=== PATIENT | female | born 1955 | race Caucasian/White ===

== ENCOUNTER 2018-04-14 19:29 | Outpatient (CLI) | payer MEDICAID | END 2018-04-14 19:30 | disposition critical access hospital (66) | LOC: EMS 19:29 | PROVIDERS: ATTEND Surgery | DX: R06.02 Shortness of breath (principal); R07.89 Other chest pain | CPT/HCPCS: A0425; A0427 ==

== ENCOUNTER 2018-04-14 19:52 | Emergency (ER) | payer MEDICAID ==
[2018-04-14] MEDS ORDERED: ASPIRIN CHEW 81 MG TABLET PO STA (20:13)
[2018-04-14] MEDS ORDERED: ALBUTEROL NEB 2.5 MG/3 ML INH STA ×2 (20:13→21:37)
--- NOTE | 2018-04-14 20:17 | ED Physician Documentation ---
History of Present Illness - Stated complaint Stated Complaint: CP/SOA - Chief complaint Chief Complaint: Resp - History obtained from History obtained from: Patient, Family - History of Present Illness Timing: Prior to arrival, Today Severity Comments: moderate Radiates to: none Worsened by: walking - Additonal information Additional information: 62-year-old female was brought to the emergency department by EMS for evaluation of shortness of breath which developed this evening around 6 PM. The patient reports feeling sick for the past several days with nasal congestion , cough, body aches and general fatigue. The patient smokes 1-1/2 packs of cigarettes a day and does not follow with a physician regularly. The patient reports increasing shortness of breath and tightness, the patient's symptoms did not improve and she called EMS. The patient was given Solu-Medrol and a DuoNeb in route and now her symptoms are somewhat improved. The patient denies any other symptoms. Symptoms are described as moderate. The patient denies any history of COPD but also does not follow with any physician. The patient does report intermittent episodes similar to tonight but typically her symptoms spontaneously resolve at home. Review of Systems Constitutional: reports: Fever, Chills, Myalgias, Fatigue Ears: denies: Ear pain Nose: reports: Rhinorrhea / runny nose, Congestion Cardiac: reports: Other (The patient reports chest tightness with the shortness of breath). 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: Hysterectomy, Oophrectomy - Present Medications Home Medications: Ambulatory Orders Medication Instructions Recorded Confirmed Albuterol Sulf [Ventolin Hfa 1 - 2 puffs INH Q4HR PRN #1 inhaler 04/15/18 Inhaler] Azithromycin [Zithromax] 250 mg PO DAILY #4 tablet 04/15/18 predniSONE [Prednisone] 60 mg PO DAILY #10 tablet 04/15/18 - Allergies Allergies/Adverse Reactions: Allergies Allergy/AdvReac Type Severity Reaction Status Date / Time lisinopril Allergy weakness Verified 04/14/18 19:59 nickel [Nickel] AdvReac Rash Verified 04/14/18 19:59 - Social History Does the pt smoke?: Yes Smoking Status: Current every day smoker Does the pt drink ETOH?: Yes Does the pt have substance abuse?: No PD ED PE NORMAL - General General: Alert and oriented X 3 - HEENT HEENT: Atraumatic, PERRL, EOMI, Ears normal - Neck Neck: Supple, no meningeal sign - Cardiac Cardiac: RRR, Strong equal pulses - Respiratory Respiratory: Other (The patient has an increased respiratory rate, the patient has poor aeration and Scattered wheezing) - Abdomen Abdomen: Soft, Non tender - Derm Derm: Normal color - Extremities Extremities: No deformity, No edema - Neuro Neuro: Alert and oriented X 3, Normal speech - Psych Psych: Normal affect Results - Vitals Vitals: Vital Signs - 24 hr 04/14/18 04/14/18 04/14/18 19:57 20:29 20:58 Temperature 36.1 C L Heart Rate 97 107 H Respiratory 24 20 20 Rate Blood Pressure 142/68 H 124/73 O2 Saturation 100 94 96 04/14/18 04/14/18 22:02 22:53 Temperature Heart Rate 93 116 H Respiratory 13 20 Rate Blood Pressure 102/70 O2 Saturation 97 Oxygen O2 Source Room air - EKG (time done) No standard instances Rate: Rate (enter#) (90 BPM) Rhythm: NSR Intervals: Normal TX, RBBB Ischemia: Non specific changes Other comments: Other comments (No acute ischemic changes When compared to a recent EKG) Compare to prior EKG: Unchanged from prior EKG - Labs Labs: Laboratory Tests 04/14/18 04/14/18 04/14/18 20:16 20:16 20:16 WBC 5.2 RBC 4.06 L Hgb 15.0 Hct 42.4 MCV 104.4 H MCH 36.9 H MCHC 35.4 RDW 14.7 Plt Count 269 MPV 6.5 L Neut # (Auto) 1.6 Lymph # (Auto) 3.1 Davidson # (Auto) 0.3 Eos # (Auto) 0.1 Baso # (Auto) 0.0 Absolute Nucleated RBC 0.00 Band Neuts % (Manual) Not Reportable Abnorm Lymph % (Manual) Not Reportable Nucleated RBC % 0.1 Neutrophils # (Manual) Not Reportable Lymphocytes # (Manual) Not Reportable Monocytes # (Manual) Not Reportable Eosinophils # (Manual) Not Reportable Basophils # (Manual) Not Reportable Differential Comment MANUAL=AUTO DIFF Platelet Estimate NORMAL (130-450,000) Platelet Morphology NORMAL APPEARANCE RBC Morph Micro Appear NORMAL APPEARANCE D-Dimer Sodium Potassium Chloride Carbon Dioxide Anion Gap BUN Creatinine Estimated GFR (MDRD) Glucose Calcium Magnesium Total Bilirubin AST ALT Alkaline Phosphatase Troponin I < 0.04 B-Natriuretic Peptide 16 Total Protein Albumin Globulin Albumin/Globulin Ratio Lipase 04/14/18 04/14/18 04/14/18 20:16 20:16 22:56 WBC RBC Hgb Hct MCV MCH MCHC RDW Plt Count MPV Neut # (Auto) Lymph # (Auto) Davidson # (Auto) Eos # (Auto) Baso # (Auto) Absolute Nucleated RBC Band Neuts % (Manual) Abnorm Lymph % (Manual) Nucleated RBC % Neutrophils # (Manual) Lymphocytes # (Manual) Monocytes # (Manual) Eosinophils # (Manual) Basophils # (Manual) Differential Comment Platelet Estimate Platelet Morphology RBC Morph Micro Appear D-Dimer < 200.0 L Sodium 131 L Potassium 3.2 L Chloride 97 L Carbon Dioxide 19 L Anion Gap 15.0 H BUN < 5 L Creatinine 0.5 Estimated GFR (MDRD) 125 Glucose 108 H Calcium 8.8 Magnesium 2.1 Total Bilirubin 0.5 AST 44 H ALT 29 Alkaline Phosphatase 91 Troponin I < 0.04 B-Natriuretic Peptide Total Protein 7.4 Albumin 3.8 Globulin 3.6 Albumin/Globulin Ratio 1.1 Lipase 33 - Rads (name of study) Chest x-ray Radiology: Final report received PD MEDICAL DECISION MAKING - ED course ED course: The patient was treated in the emergency department with albuterol and the patient received steroids in route with EMS. The patient has had much improvement has much better aeration and is not hypoxic. The patient's symptoms today seem to be secondary to an acuteCOPD exacerbation secondary to a long history of smoking. Currently, the patient appears appropriate for discharge home in ongoing outpatient management. I discussed with the patient and her family the findings and plan and they understand and agree. I advised close follow-up with primary care. I discussed warning signs and recommended returning to the emergency department immediately for worsening or any concerns. - Sepsis Event Vital Signs: Vital Signs - 24 hr 04/14/18 04/14/18 04/14/18 19:57 20:29 20:58 Temperature 36.1 C L Heart Rate 97 107 H Respiratory 24 20 20 Rate Blood Pressure 142/68 H 124/73 O2 Saturation 100 94 96 04/14/18 04/14/18 22:02 22:53 Temperature Heart Rate 93 116 H Respiratory 13 20 Rate Blood Pressure 102/70 O2 Saturation 97 Oxygen O2 Source Room air Departure - Departure Disposition: Home, Self Care Clinical Impression: COPD with exacerbation Condition: Good Instructions: COPD Dc, Emphysema Dc, ALBUTEROL Oral Inhaler Follow-Up: [facility] [Provider Group] [facility] [Provider Group] - Within 3 Days Prescriptions: Albuterol Sulf [Ventolin Hfa Inhaler] 1 - 2 puffs INH Q4HR PRN #1 inhaler PRN Reason: Shortness Of Air/Wheezing Azithromycin [Zithromax] 250 mg PO DAILY #4 tablet predniSONE [Prednisone] 60 mg PO DAILY #10 tablet Comments: Please follow-up with primary care for further workup and management of your symptoms. Please call to schedule an appointment. Please return to the emergency department immediately for worsening symptoms or any concerns
[2018-04-14 20:20] LABS: BASOPHILS % (AUTO) 0.6 %; EOSINOPHILS # (AUTO) 0.1 10^3/uL (0.0-0.7); EOSINOPHILS % (AUTO) 1.7 %; LYMPHOCYTES # (AUTO) 3.1 10^3/uL (1.5-3.5); LYMPHOCYTES % (AUTO) 60.5 %; MEAN CORPUSCULAR HEMOGLOBIN 36.9 pg (27.0-31.0); MEAN CORPUSCULAR HGB CONC 35.4 g/dL (32.0-36.0); MEAN CORPUSCULAR VOLUME 104.4 fL (81.0-99.0); MEAN PLATELET VOLUME 6.5 fL (7.9-10.8); MONOCYTES # (AUTO) 0.3 10^3/uL (0.0-1.0); MONOCYTES % (AUTO) 6.6 %; NEUTROPHILS # (AUTO) 1.6 10^3/uL (1.5-6.6); NEUTROPHILS % (AUTO) 30.6 %; PLT - PLATELET COUNT 269 10^3/uL (130-450); RED BLOOD COUNT 4.06 10^6/uL (4.20-5.40); RED CELL DISTRIBUTION WIDTH 14.7 % (12.0-15.0); WHITE BLOOD COUNT 5.2 x10^3/uL (4.8-10.8)
[2018-04-14 20:48] LABS: ALBUMIN 3.8 g/dL (3.2-5.5); ALBUMIN/GLOBULIN RATIO 1.1 (1.0-2.2); ALKALINE PHOSPHATASE 91 IU/L (42-121); ALT ALANINE AMINOTRANSFERASE 29 IU/L (10-60); AST ASPARTATE AMINOTRANSFERASE 44 IU/L (10-42); BILIRUBIN,TOTAL 0.5 mg/dL (0.2-1.0); BUN - BLOOD UREA NITROGEN < 5 mg/dL (6-20); CALCIUM 8.8 mg/dL (8.5-10.3); CARBON DIOXIDE - CO2 19 mmol/L (21-32); CHLORIDE 97 mmol/L (101-111); CREATININE 0.5 mg/dL (0.4-1.0); GFR - MDRD 125 (>89); GLUCOSE 108 mg/dL (70-100); LIPASE 33 U/L (22-51); MAGNESIUM 2.1 mg/dL (1.7-2.8); SODIUM 131 mmol/L (135-145); TOTAL PROTEIN 7.4 g/dL (6.7-8.2)
--- NOTE | 2018-04-14 20:48 | XRAY Report ---
Procedure Date: 04/14/2018 Accession Number: [id number] / [id number] Procedure: XR - Chest 2 View X-Ray CPT Code: 78362 FULL RESULT: EXAM: CHEST RADIOGRAPHY EXAM DATE: 04/14/2018 08:26 PM. CLINICAL HISTORY: Chest pain COMPARISON: CHEST 2 VIEW PA/LAT 12/08/2013. TECHNIQUE: 2 views. FINDINGS: Lungs/Pleura: No focal opacities evident. No pleural effusion. No pneumothorax. Normal volumes. Mediastinum: Heart and mediastinal contours are unremarkable. Other: None. IMPRESSION: Normal 2-view chest radiography. RADIA
[2018-04-14] MEDS ORDERED: POTASSIUM CHLORIDE 20 MEQ TABLET PO STA (20:52)
[2018-04-14 20:56] LABS: PLATELET ESTIMATE, MANUAL NORMAL (130-450,000) (NORMAL); PLATELET MORPHOLOGY NORMAL APPEARANCE (NORMAL); RBC MORPHOLOGY (MULTIPLE) NORMAL APPEARANCE (NORMAL)
[2018-04-14 20:57] LABS: DIFFERENTIAL COMMENT MANUAL=AUTO DIFF
[2018-04-14] MEDS ORDERED: AZITHROMYCIN 250 MG TABLET PO STA (21:37)
[2018-04-14] MEDS ORDERED: IPRATROPIUM 0.2 MG/ML NEB INH STA (21:39)
[2018-04-14] MEDS ORDERED: ALBUTEROL NEB 2.5 MG/3 ML INH ONE (22:04)
[2018-04-15 00:23] VITALS: BP 124/75
== END 2018-04-15 00:23 | disposition home or self-care (01) ==
LOC: EDUNIT# → ED 19:52
DX: J44.1 Chronic obstructive pulmonary disease with (acute) exacerbation (principal); I45.10 Unspecified right bundle-branch block; F17.200 Nicotine dependence, unspecified, uncomplicated
CPT/HCPCS: 36415; 71046; 80053; 83690; 83735; 83880; 84484; 85025; 85379; 93005; 94640; 94664; 99284; A9270

== ENCOUNTER 2018-04-24 07:57 | Outpatient (CLI) | payer MEDICAID ==
[2018-04-24 11:59] LABS: BASOPHILS % (AUTO) 0.3 %; EOSINOPHILS % (AUTO) 0.8 %; HGB - HEMOGLOBIN 15.1 g/dL (12.0-16.0); LYMPHOCYTES # (AUTO) 2.8 10^3/uL (1.5-3.5); LYMPHOCYTES % (AUTO) 43.2 %; MEAN CORPUSCULAR HEMOGLOBIN 36.7 pg (27.0-31.0); MEAN CORPUSCULAR HGB CONC 34.6 g/dL (32.0-36.0); MEAN CORPUSCULAR VOLUME 106.1 fL (81.0-99.0); MEAN PLATELET VOLUME 7.9 fL (7.9-10.8); MONOCYTES # (AUTO) 0.4 10^3/uL (0.0-1.0); MONOCYTES % (AUTO) 5.5 %; NEUTROPHILS # (AUTO) 3.3 10^3/uL (1.5-6.6); NEUTROPHILS % (AUTO) 50.2 %; PLT - PLATELET COUNT 283 10^3/uL (130-450); RED BLOOD COUNT 4.11 10^6/uL (4.20-5.40); RED CELL DISTRIBUTION WIDTH 14.4 % (12.0-15.0); WHITE BLOOD COUNT 6.5 x10^3/uL (4.8-10.8)
[2018-04-24 12:47] LABS: ALBUMIN 3.9 g/dL (3.2-5.5); ALBUMIN/GLOBULIN RATIO 1.1 (1.0-2.2); ALKALINE PHOSPHATASE 73 IU/L (42-121); ALT ALANINE AMINOTRANSFERASE 29 IU/L (10-60); AST ASPARTATE AMINOTRANSFERASE 34 IU/L (10-42); BILIRUBIN,TOTAL 0.8 mg/dL (0.2-1.0); BUN - BLOOD UREA NITROGEN 8 mg/dL (6-20); CALCIUM 9.7 mg/dL (8.5-10.3); CARBON DIOXIDE - CO2 27 mmol/L (21-32); CHLORIDE 99 mmol/L (101-111); CHOL/HDL RATIO 2.4 (<4.4); CHOLESTEROL 316 mg/dL; CREATININE 0.7 mg/dL (0.4-1.0); GFR - MDRD 85 (>89); GLUCOSE 96 mg/dL (70-100); HDL CHOLESTEROL 134 mg/dL; LDL CHOLESTEROL,CALCULATED 168 mg/dL; LDL/HDL RATIO 1.3 (<4.4); SODIUM 136 mmol/L (135-145); TOTAL PROTEIN 7.3 g/dL (6.7-8.2); VLDL CHOLESTEROL 14 mg/dL
== END 2018-04-24 07:58 ==
LOC: LAB.N 07:57
PROVIDERS: ATTEND Physician Assistant Medical
DX: Z00.00 Encounter for general adult medical examination without abnormal findings (principal); J43.9 Emphysema, unspecified; J44.1 Chronic obstructive pulmonary disease with (acute) exacerbation; Z86.19 Personal history of other infectious and parasitic diseases; Z90.89 Acquired absence of other organs; Z90.710 Acquired absence of both cervix and uterus; I50.1 Left ventricular failure, unspecified; F10.10 Alcohol abuse, uncomplicated; F17.200 Nicotine dependence, unspecified, uncomplicated
CPT/HCPCS: 36415; 80053; 80061; 83721; 84443; 85025

== ENCOUNTER 2018-04-30 08:33 | Outpatient (CLI) | payer MEDICAID ==
[2018-04-30 13:10] LABS: FOLATE 12.47 ng/mL (5.90 - >24.8)
== END 2018-04-30 08:34 | disposition home or self-care (01) ==
LOC: LAB.N 08:33
PROVIDERS: ATTEND Physician Assistant Medical
DX: D53.9 Nutritional anemia, unspecified (principal)
CPT/HCPCS: 36415; 82607; 82746

== ENCOUNTER 2018-06-26 08:00 | Outpatient (CLI) | payer MEDICAID | END 2018-06-26 08:01 | disposition home or self-care (01) | LOC: LAB.N 08:00 | PROVIDERS: ATTEND Physician Assistant Medical | DX: E78.5 Hyperlipidemia, unspecified (principal) | CPT/HCPCS: 36415; 80061; 83721 ==

== ENCOUNTER 2018-08-23 08:31 | Outpatient (CLI) | payer MEDICAID ==
[2018-08-23 13:58] LABS: CHOL/HDL RATIO 2.3 (<4.4); CHOLESTEROL 231 mg/dL; HDL CHOLESTEROL 101 mg/dL; LDL CHOLESTEROL,CALCULATED 119 mg/dL; LDL/HDL RATIO 1.2 (<4.4); VLDL CHOLESTEROL 11 mg/dL
== END 2018-08-23 23:59 | disposition home or self-care (01) ==
LOC: LAB.N 08:31
PROVIDERS: ATTEND Physician Assistant Medical
DX: E78.5 Hyperlipidemia, unspecified (principal)
CPT/HCPCS: 36415; 80061; 83721

== ENCOUNTER 2019-01-08 08:00 | Outpatient (CLI) | payer MEDICAID ==
[2019-01-08 13:07] LABS: CHOL/HDL RATIO 2.2 (<4.4); CHOLESTEROL 199 mg/dL; HDL CHOLESTEROL 91 mg/dL; LDL CHOLESTEROL,CALCULATED 98 mg/dL; LDL/HDL RATIO 1.1 (<4.4); VLDL CHOLESTEROL 10 mg/dL
== END 2019-01-08 23:59 | disposition home or self-care (01) ==
LOC: LAB.N 08:00
PROVIDERS: ATTEND Physician Assistant Medical
DX: E78.5 Hyperlipidemia, unspecified (principal)
CPT/HCPCS: 36415; 80061; 83721

== ENCOUNTER 2019-10-06 10:25 | Outpatient (CLI) | payer MEDICAID ==
--- NOTE | 2019-10-07 00:19 | XRAY Report ---
Reason: SOB Procedure Date: 10/06/2019 Accession Number: [id number] / [id number] Procedure: XRN - Chest 2 View X-Ray CPT Code: 23222 Final Report FULL RESULT: EXAM: CHEST RADIOGRAPHY EXAM DATE: 10/06/2019 10:45 AM. CLINICAL HISTORY: Shortness of breath. COMPARISON: CHEST 2 VIEW 04/14/2018 8:07 PM. TECHNIQUE: 2 views. FINDINGS: Lungs/Pleura: No focal opacities evident. No pleural effusion. No pneumothorax. Normal volumes. Mediastinum: Heart and mediastinal contours are unremarkable. Other: None. IMPRESSION: No acute cardiopulmonary disease seen. RADIA
== END 2019-10-06 10:26 | disposition home or self-care (01) ==
LOC: DI.N 10:25
PROVIDERS: ATTEND Physician Assistant Medical
DX: R06.02 Shortness of breath (principal)
CPT/HCPCS: 71046

== ENCOUNTER 2020-09-13 10:29 | Outpatient (CLI) | payer MEDICAID ==
--- NOTE | 2020-09-13 10:49 | XRAY Report ---
PROCEDURE: Chest 2 View X-Ray INDICATIONS: COPD, SOB TECHNIQUE: 2 view(s) of the chest. COMPARISON: None. FINDINGS: Surgical changes and devices: None. Lungs and pleura: No pleural effusions or pneumothorax. Lungs are clear. Hyperinflation is seen. Mediastinum: Mediastinal contours are normal. Heart size is normal. Bones and chest wall: No suspicious bony abnormalities. Soft tissues appear unremarkable. IMPRESSION: No acute cardiopulmonary pathology. Hyperinflation. Reviewed by: Red Arias MD on 09/13/2020 10:48 AM [facility] Approved by: Red Arias MD on 09/13/2020 10:48 AM [facility] Station ID: [id number]
== END 2020-09-13 23:59 ==
LOC: DI.WCP 10:29
PROVIDERS: ATTEND Nurse Practitioner
DX: J44.9 Chronic obstructive pulmonary disease, unspecified (principal); R06.02 Shortness of breath; I10 Essential (primary) hypertension

== ENCOUNTER 2020-09-17 08:50 | Outpatient (CLI) | payer MEDICAID ==
[2020-09-17 12:25] LABS: BASOPHILS % (AUTO) 0.6 %; EOSINOPHILS # (AUTO) 0.2 10^3/uL (0.0-0.7); HGB - HEMOGLOBIN 12.3 g/dL (12.0-16.0); LYMPHOCYTES # (AUTO) 1.3 10^3/uL (1.5-3.5); LYMPHOCYTES % (AUTO) 27.6 %; MEAN CORPUSCULAR HGB CONC 32.8 g/dL (32.0-36.0); MEAN CORPUSCULAR VOLUME 106.8 fL (81.0-99.0); MEAN PLATELET VOLUME 9.4 fL (7.9-10.8); MONOCYTES # (AUTO) 0.4 10^3/uL (0.0-1.0); MONOCYTES % (AUTO) 9.1 %; NEUTROPHILS # (AUTO) 2.6 10^3/uL (1.5-6.6); NEUTROPHILS % (AUTO) 57.1 %; PLT - PLATELET COUNT 297 10^3/uL (130-450); RED BLOOD COUNT 3.51 10^6/uL (4.20-5.40); RED CELL DISTRIBUTION WIDTH 13.2 % (12.0-15.0); WHITE BLOOD COUNT 4.6 x10^3/uL (4.8-10.8)
[2020-09-17 12:59] LABS: ALBUMIN 3.8 g/dL (3.2-5.5); ALBUMIN/GLOBULIN RATIO 1.1 (1.0-2.2); ALKALINE PHOSPHATASE 87 IU/L (42-121); ALT ALANINE AMINOTRANSFERASE 25 IU/L (10-60); AST ASPARTATE AMINOTRANSFERASE 29 IU/L (10-42); BILIRUBIN,TOTAL 0.6 mg/dL (0.2-1.0); BUN - BLOOD UREA NITROGEN 8 mg/dL (6-20); CARBON DIOXIDE - CO2 25 mmol/L (21-32); CHLORIDE 105 mmol/L (101-111); CHOL/HDL RATIO 2.8 (<4.4); CHOLESTEROL 240 mg/dL; CREATININE 0.7 mg/dL (0.4-1.0); GLUCOSE 96 mg/dL (70-100); HDL CHOLESTEROL 86 mg/dL; LDL CHOLESTEROL,CALCULATED 138 mg/dL; LDL/HDL RATIO 1.6 (<4.4); SODIUM 140 mmol/L (135-145); TOTAL PROTEIN 7.4 g/dL (6.7-8.2); VLDL CHOLESTEROL 16 mg/dL
--- OUTSIDE RECORDS SUMMARY | 2020-09-22 01:55 | EXTERNAL MEDICAL SUMMARY RPT | Continuity of Care Document ---
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 2013-02-27 14:[address] [facility] 2013-04-24 15:[address] [facility] 2013-05-01 13:18 LOC OSTEOARTH NOS-PELVIS [facility] 2013-05-22 13:06 JOINT PAIN-UNSPEC [facility] 2013-05-23 13:52 LOC OSTEOARTH NOS-L/LEG [facility] 2013-07-03 14:[address] [facility] 2013-10-28 09:05 TOBACCO USE DISORDER [facility] ical [place] 2013-10-28 09:[address] [facility] 2013-10-28 09:05 INTERMED [facility]ON[facility] SYND [facility] [place] 2013-10-28 09:05 OSTEOARTHROS NOS-UNSPEC [facility] 2013-10-28 09:05 DIZZINESS AND GIDDINESS [facility] 2013-10-28 09:05 GENERALIZED HYPERHIDROSIS [facility] 2013-10-28 09:05 SHORTNESS OF BREATH [facility] 2013-10-28 09:05 FAMILY HISTORY OF OTHER [facility] CARDIOVASCULAR DISEASES 2013-12-08 07:37 SHORTNESS OF BREATH [facility] 2013-12-08 07:37 CHEST PAIN NOS [facility] 2013-12-08 07:37 HX-DRUG ALLERGY NEC [facility] 2013-12-08 07:37 ALLERGY, OTH THAN TO MEDICINAL [facility] AGENTS NEC 2013-12-10 10:10 ANGINA PECTORIS NEC/NOS [facility] 2014-01-12 13:52 ANGINA PECTORIS NEC/NOS [facility] 2014-01-12 13:52 ARTHROPATHY NOS-UNSPEC [facility] 2014-02-09 10:22 HYPERTENSION NOS [facility] 2014-02-09 10:22 OTH MED,LT,CURRENT USE [facility] edical [place] 2014-03-10 10:17 DEFICIENCY ANEMIA NOS [facility] 2014-03-25 08:28 HYPERTENSION NOS [facility] [place] 2014-03-25 08:28 ANGINA PECTORIS NEC/NOS [facility] 2014-03-25 08:28 JOINT PAIN-PELVIS [facility] [place] 2014-03-25 08:28 JOINT PAIN-ANKLE [facility] 2014-03-25 08:28 PAIN IN LIMB [facility] 2018-04-14 19:52 NICOTINE DEPENDENCE, [facility] UNSPECIFIED, UNCOMPLICATED 2018-04-14 19:52 UNSPECIFIED RIGHT BUNDLE-BRANCH [facility] BLOCK 2018-04-14 19:52 CHRONIC OBSTRUCTIVE PULMONARY [facility] DISEASE W (ACUTE) EXACERBATION 2018-04-14 19:52 CHEST PAIN, UNSPECIFIED [facility] 2018-04-24 07:57 ALCOHOL ABUSE, UNCOMPLICATED [facility] 2018-04-24 07:57 NICOTINE DEPENDENCE, [facility] UNSPECIFIED, UNCOMPLICATED 2018-04-24 07:57 LEFT VENTRICULAR FAILURE, [facility] UNSPECIFIED 2018-04-24 07:57 EMPHYSEMA, UNSPECIFIED [facility] 2018-04-24 07:57 CHRONIC OBSTRUCTIVE PULMONARY [facility] DISEASE W (ACUTE) EXACERBATION 2018-04-24 07:57 ENCNTR FOR GENERAL ADULT [facility] MEDICAL EXAM W/O ABNORMAL FINDINGS 2018-04-24 07:57 PERSONAL HISTORY OF OTHER [facility] INFECTIOUS AND PARASITIC DISEASES 2018-04-24 07:57 ACQUIRED ABSENCE OF BOTH CERVIX [facility] AND UTERUS 2018-04-24 07:57 ACQUIRED ABSENCE OF OTHER [facility] 2018-04-30 08:33 NUTRITIONAL ANEMIA, UNSPECIFIED [facility] 2018-06-26 08:00 HYPERLIPIDEMIA, UNSPECIFIED [facility] 2018-08-23 08:31 HYPERLIPIDEMIA, UNSPECIFIED [facility] 2019-01-08 08:00 HYPERLIPIDEMIA, UNSPECIFIED [facility] 2019-10-06 10:25 SHORTNESS OF BREATH [facility] 2020-09-13 00:00:00 TSH WITH REFLEX TO FT4 [facility] 2020-09-13 00:00:00 [facility] 2020-09-13 00:00:00 Ganglion, unspecified [facility] Care [facility] 2020-09-13 00:00:[address] [facility] 2020-09-13 00:00:00 Screening for malignant [facility] neoplasms of colon [facility] 2020-09-13 00:00:00 X-RAY EXAM CHEST 2 VIEWS [facility] Primary [facility] 2020-09-13 00:00:00 MM SCR DIGITAL [facility]AMMO BILAT [facility] 2020-09-13 00:00:00 COMPREHENSIVE METABOLIC PANEL [facility] Care [facility] 2020-09-13 00:00:00 LIPIDS SCREEN [facility] 2020-09-13 00:00:00 CBC W/Diff/Plt [facility] 2020-09-13 00:00:00 ECHO TRANSTHORACIC COMPLETE [facility] 2020-09-13 00:00:00 Unspecified disorder of [facility] circulatory system [facility] 2020-09-13 00:00:00 Ganglion, unspecified site [facility] 2020-09-13 00:00:00 Encounter for screening for [facility] malignant neoplasm of colon [facility] 2020-09-13 00:00:00 [facility] 2020-09-13 00:00:00 [facility] 2020-09-13 00:00:00 Health-related behavior [facility] 2020-09-13 00:00:00 [facility] 2020-09-13 00:00:00 Screening mammography [facility] 2020-09-13 00:00:00 [facility] 2020-09-13 00:00:00 [facility] neoplasm [facility] colon [facility] 2020-09-13 00:00:00 Details of drug misuse behavior [facility] 2020-09-13 00:00:00 [facility] 2020-09-13 00:00:00 Disorder of cardiovascular [facility] 2020-09-13 00:00:00 [facility] 2020-09-13 00:00:00 Tobacco smoking status NHIS [facility] 2020-09-13 00:00:00 [facility] 2020-09-13 10:29 ESSENTIAL (PRIMARY) [facility] HYPERTENSION 2020-09-13 10:29 CHRONIC OBSTRUCTIVE PULMONARY [facility] DISEASE, UNSPECIFIED 2020-09-13 10:29 SHORTNESS OF BREATH [facility] 2020-09-17 00:00 HYPERLIPIDEMIA, UNSPECIFIED [facility] 2020-09-17 08:50 HYPERLIPIDEMIA, UNSPECIFIED [facility] Allergies date description facility [facility] LISINOPRIL [facility] SULFA (SULFONAMIDE ANTIBIOTICS) [facility] lisinopril [facility] LATEX [facility] OXYCODONE-ACETAMINOPHEN [facility] lisinopril [facility] nickel [facility] lisinopril [facility] nickel [facility] Medications date description facility 2020-09-13 00:00:00 null [facility] 2020-09-13 00:00:00 null [facility] 2020-09-13 00:00:00 BUDESONIDE-FORMOTEROL FUMARATE [facility] 2020-09-13 00:00:00 BUDESONIDE-FORMOTEROL FUMARATE [facility] Procedures date description facility 2020-09-13 00:00:00 TSH WITH REFLEX TO FT4 [facility] date description facility 2020-09-13 00:00:00 X-RAY EXAM CHEST 2 VIEWS [facility] date description facility 2020-09-13 00:00:00 COMPREHENSIVE METABOLIC PANEL [facility] date description facility 2020-09-13 00:00:00 LIPIDS SCREEN [facility] date description facility 2020-09-13 00:00:00 CBC W/Diff/Plt [facility] date description facility 2020-09-13 00:00:00 [facility] Results Social History date description facility 2020-09-13 00:00:00 Former smoker [facility] Social History date description facility 2020-09-13 00:00:00 Former smoker [facility] date description facility [id number]
== END 2020-09-17 23:59 | disposition home or self-care (01) ==
LOC: LAB.WCP 08:50
PROVIDERS: ATTEND Nurse Practitioner
DX: I10 Essential (primary) hypertension (principal); E78.5 Hyperlipidemia, unspecified; J44.9 Chronic obstructive pulmonary disease, unspecified; R06.02 Shortness of breath; M19.90 Unspecified osteoarthritis, unspecified site; D53.9 Nutritional anemia, unspecified; I25.10 Atherosclerotic heart disease of native coronary artery without angina pectoris
CPT/HCPCS: 36415; 80050; 80061; 83721

== ENCOUNTER 2020-10-28 18:48 | Outpatient (CLI) | payer MEDICAID ==
--- NOTE | 2020-10-28 15:29 | XRAY Report ---
PROCEDURE: Wrist 3 View RT INDICATIONS: R WRIST JOINT PX TECHNIQUE: 3 views of the wrist were acquired. COMPARISON: None FINDINGS: Bones: No fractures or dislocations. No suspicious bony lesions. Moderate to severe first CMC dege nerative narrowing. Subchondral sclerosis is present. Radiocarpal degenerative narrowing is also pres ent. Soft tissues: No suspicious soft tissue calcifications. IMPRESSION: Arthritic changes most notable at the first CMC joint as above. Reviewed by: Silvana Ngo MD on 10/28/2020 3:27 PM PST Approved by: Silvana Ngo MD on 10/28/2020 3:27 PM PST Station ID: [id number]
== END 2020-10-28 23:59 | disposition home or self-care (01) ==
LOC: DI.N 18:48
PROVIDERS: ATTEND Orthopaedic Surgery
DX: M25.531 Pain in right wrist (principal); M19.031 Primary osteoarthritis, right wrist

== ENCOUNTER 2020-11-07 08:39 | Outpatient (CLI) | payer MEDICAID | END 2020-11-07 08:40 | disposition home or self-care (01) | LOC: RT 08:39 | PROVIDERS: ATTEND Nurse Practitioner | DX: J44.9 Chronic obstructive pulmonary disease, unspecified (principal); R06.02 Shortness of breath | CPT/HCPCS: 94060 ==

== ENCOUNTER 2020-11-11 10:05 | Outpatient (CLI) | payer MEDICAID | END 2020-11-11 10:06 | disposition home or self-care (01) | LOC: DI 10:05 | PROVIDERS: ATTEND Nurse Practitioner | DX: I25.10 Atherosclerotic heart disease of native coronary artery without angina pectoris (principal); R06.02 Shortness of breath; E78.5 Hyperlipidemia, unspecified | CPT/HCPCS: 93306 ==

== ENCOUNTER 2020-12-27 08:26 | Outpatient (CLI) | payer MEDICAID | END 2020-12-27 08:27 | disposition home or self-care (01) | LOC: LAB 08:26 | PROVIDERS: ATTEND Surgery | DX: Z01.812 Encounter for preprocedural laboratory examination (principal); Z80.0 Family history of malignant neoplasm of digestive organs; Z12.11 Encounter for screening for malignant neoplasm of colon; K21.9 Gastro-esophageal reflux disease without esophagitis; K92.0 Hematemesis; J44.9 Chronic obstructive pulmonary disease, unspecified; I25.10 Atherosclerotic heart disease of native coronary artery without angina pectoris; Z20.822 Contact with and (suspected) exposure to COVID-19 ==

== ENCOUNTER 2020-12-30 12:07 | Day surgery (SDC) | payer MEDICAID ==
[2020-12-30] MEDS ORDERED: LACTATED RINGERS 1,000 ML IV ONE ×2 (12:54→14:12)
--- NOTE | 2020-12-30 13:10 | ANESTHESIA ---
Pre-Anesthesia VS, & Labs - Diagnosis reflux, family history of colon cancer - Procedure EGD, colonoscopy Vital Signs: Temp Pulse Resp BP Pulse Ox 36.4 C L 97 20 148/83 H 96 12/30/20 12:15 12/30/20 12:15 12/30/20 12:15 12/30/20 12:15 12/30/20 12:15 Height: 5 ft Weight (kg): 95.6 kg Body Mass Index: 41.1 BMI Classification: Morbidly Obese - NPO >8 hours - Is Patient ?: Yes Home Medications and Allergies Home Medications: Ambulatory Orders Amlodipine Besylate [Norvasc] 10 mg PO DAILY 12/20/20 Atorvastatin Calcium 40 mg PO DAILY 12/20/20 Budesonide/Formoterol Fumarate [Symbicort 160-4.5 Mcg Inhaler] 2 inh IH BID 12/20/20 Amlodipine Besylate [Norvasc] 10 mg PO DAILY 12/20/20 Atorvastatin Calcium 40 mg PO DAILY 12/20/20 Budesonide/Formoterol Fumarate [Symbicort 160-4.5 Mcg Inhaler] 2 inh IH BID 12/20/20 Allergies/Adverse Reactions: Allergies Allergy/AdvReac Type Severity Reaction Status Date / Time lisinopril Allergy weakness Verified 04/14/18 19:59 nickel [Nickel] AdvReac Rash Verified 04/14/18 19:59 Anes History & Medical History - Anesthetic History Anesthesia Complications: reports: No previous complications - Medical History Cardiovascular: reports: Hypertension, High cholesterol, Angina Pulmonary: reports: COPD, Emphysema, Shortness of breath Gastrointestinal: reports: GERD, Cholelithiasis Urinary: reports: Incontinence, Nocturia Musculoskeletal: reports: Osteoarthritis Endocrine/Autoimmune: reports: None Blood Disorders: reports: None Skin: reports: Eczema, Other Smoking Status: Current every day smoker - Surgical History General: reports: Cholecystectomy Eyes Ears Nose Throat (EENT): reports: Tonsil/Adenoidectomy Gynecologic: reports: Hysterectomy, Oophrectomy Exam General: Alert Dental: Dentures full Upper Neck Mobility: Normal Mallampati classification: I Thyromental Distance: greater than 6 cm Respiratory: Lungs clear Cardiovascular: Regular rate Plan Anesthesia Type: Total IV Consent for Procedure(s) Verified and Reviewed: Yes Code Status: Attempt Resuscitation ASA classification: 3-Severe systemic disease Is this case an emergency?: No
[2020-12-30] MEDS ORDERED: fentaNYL 100 MCG/2 ML VIAL ONE (13:28)
[2020-12-30] MEDS ORDERED: PROPOFOL 200 MG/20 ML VIAL IVP ONE ×2 (13:29→14:03)
[2020-12-30] MEDS ORDERED: KETAMINE 500 MG/10 ML VIAL ONE (13:29)
[2020-12-30] MEDS ORDERED: MIDAZOLAM 2 MG/2 ML VIAL ONE (13:29)
[2020-12-30] MEDS ORDERED: LIDOCAINE-MPF 2% 5 ML VIAL ONE (14:01)
[2020-12-30 15:03] VITALS: BP 124/68
[2020-12-30] MEDS ORDERED: KETOROLAC 30 MG/ML VIAL ONE (15:20)
--- NOTE | 2020-12-30 16:04 | ANESTHESIA POST OP EVALUATION ---
Anesthesia Post Eval - Post Anesthesia Eval Vitals: Last Vital Signs Temp 36.5 C 12/30/20 15:02 Pulse 65 12/30/20 15:02 Resp 19 12/30/20 15:02 BP 124/68 12/30/20 15:02 Pulse Ox 98 12/30/20 15:02 CV Function Including HR & BP: Stable Pain Control: Satisfactory Nausea & Vomiting: Negative Mental Status: Baseline Respiratory Status: Airway Patent Hydration Status: Satisfactory Anesthesia Complications: None
== END 2020-12-30 12:08 | disposition home or self-care (01) ==
LOC: SDS 12:07
PROVIDERS: ATTEND Surgery
PROC: 0DB78ZX Excision of Stomach, Pylorus, Via Natural or Artificial Opening Endoscopic, Diagnostic (ICD-10-PCS; 2020-12-30)
PROC: 0DB58ZX Excision of Esophagus, Via Natural or Artificial Opening Endoscopic, Diagnostic (ICD-10-PCS; 2020-12-30)
PROC: 0DBN8ZZ Excision of Sigmoid Colon, Via Natural or Artificial Opening Endoscopic (ICD-10-PCS; principal; 2020-12-30 13:15)
PROC: 0DB98ZX Excision of Duodenum, Via Natural or Artificial Opening Endoscopic, Diagnostic (ICD-10-PCS; 2020-12-30 13:15)
DX: Z12.11 Encounter for screening for malignant neoplasm of colon (principal); K63.5 Polyp of colon; K21.9 Gastro-esophageal reflux disease without esophagitis; K64.8 Other hemorrhoids; K64.4 Residual hemorrhoidal skin tags; K92.0 Hematemesis; E66.01 Morbid (severe) obesity due to excess calories; Z68.41 Body mass index [BMI] 40.0-44.9, adult; I25.10 Atherosclerotic heart disease of native coronary artery without angina pectoris; I10 Essential (primary) hypertension; Z80.0 Family history of malignant neoplasm of digestive organs; J43.9 Emphysema, unspecified; F17.200 Nicotine dependence, unspecified, uncomplicated
CPT/HCPCS: 43239; 45380; J7120

== ENCOUNTER 2021-08-22 10:45 | Outpatient (CLI) | payer MEDICARE, MEDICAID ==
[2021-08-22 18:14] LABS: BASOPHILS % (AUTO) 0.3 %; EOSINOPHILS # (AUTO) 0.1 10^3/uL (0.0-0.7); EOSINOPHILS % (AUTO) 2.3 %; HCT - HEMATOCRIT 44.7 % (37.0-47.0); HGB - HEMOGLOBIN 14.4 g/dL (12.0-16.0); LYMPHOCYTES # (AUTO) 1.5 10^3/uL (1.5-3.5); LYMPHOCYTES % (AUTO) 23.8 %; MEAN CORPUSCULAR HEMOGLOBIN 33.7 pg (27.0-31.0); MEAN CORPUSCULAR HGB CONC 32.2 g/dL (32.0-36.0); MEAN CORPUSCULAR VOLUME 104.7 fL (81.0-99.0); MEAN PLATELET VOLUME 9.3 fL (7.9-10.8); MONOCYTES # (AUTO) 0.4 10^3/uL (0.0-1.0); MONOCYTES % (AUTO) 6.6 %; NEUTROPHILS % (AUTO) 66.5 %; PLT - PLATELET COUNT 371 10^3/uL (130-450); RED BLOOD COUNT 4.27 10^6/uL (4.20-5.40); RED CELL DISTRIBUTION WIDTH 13.9 % (12.0-15.0); WHITE BLOOD COUNT 6.1 x10^3/uL (4.8-10.8)
[2021-08-22 18:36] LABS: ALBUMIN 3.5 g/dL (3.2-5.5); ALBUMIN/GLOBULIN RATIO 0.9 (1.0-2.2); ALKALINE PHOSPHATASE 131 IU/L (42-121); ALT ALANINE AMINOTRANSFERASE 25 IU/L (10-60); AST ASPARTATE AMINOTRANSFERASE 31 IU/L (10-42); BILIRUBIN,TOTAL 0.7 mg/dL (0.2-1.0); BUN - BLOOD UREA NITROGEN 7 mg/dL (6-20); CALCIUM 9.4 mg/dL (8.5-10.3); CARBON DIOXIDE - CO2 26 mmol/L (21-32); CHLORIDE 103 mmol/L (101-111); CHOL/HDL RATIO 2.6 (<4.4); CHOLESTEROL 169 mg/dL; CREATININE 0.7 mg/dL (0.4-1.0); GFR - MDRD 84 (>89); GLUCOSE 97 mg/dL (70-100); HDL CHOLESTEROL 65 mg/dL; LDL CHOLESTEROL,CALCULATED 88 mg/dL; LDL/HDL RATIO 1.4 (<4.4); POTASSIUM 3.1 mmol/L (3.5-5.0); SODIUM 140 mmol/L (135-145); TOTAL PROTEIN 7.5 g/dL (6.7-8.2); TRIGLYCERIDES 78 mg/dL; VLDL CHOLESTEROL 16 mg/dL
== END 2021-08-22 23:59 | disposition home or self-care (01) ==
LOC: LAB.WCP 10:45
PROVIDERS: ATTEND Family Medicine
DX: I10 Essential (primary) hypertension (principal); L08.9 Local infection of the skin and subcutaneous tissue, unspecified
CPT/HCPCS: 36415; 80053; 80061; 83721; 85025; 87070; 87077; 87181; 87205

== ENCOUNTER 2021-08-29 10:09 | Outpatient (CLI) | payer MEDICARE, MEDICAID ==
[2021-08-29 12:33] LABS: CREATININE 0.7 mg/dL (0.4-1.0); POTASSIUM 4.5 mmol/L (3.5-5.0)
== END 2021-08-29 23:59 | disposition home or self-care (01) ==
LOC: LAB.WCP 10:09
PROVIDERS: ATTEND Family Medicine
DX: E87.5 Hyperkalemia (principal)
CPT/HCPCS: 36415; 80048

== ENCOUNTER 2023-01-01 08:04 | Outpatient (CLI) | payer MEDICARE, MEDICAID ==
[2023-01-01 12:15] LABS: BASOPHILS % (AUTO) 0.5 %; EOSINOPHILS # (AUTO) 0.2 10^3/uL (0.0-0.7); EOSINOPHILS % (AUTO) 2.7 %; HCT - HEMATOCRIT 49.3 % (37.0-47.0); HGB - HEMOGLOBIN 16.4 g/dL (12.0-16.0); LYMPHOCYTES # (AUTO) 1.6 10^3/uL (1.5-3.5); LYMPHOCYTES % (AUTO) 27.9 %; MEAN CORPUSCULAR HEMOGLOBIN 35.4 pg (27.0-31.0); MEAN CORPUSCULAR HGB CONC 33.3 g/dL (32.0-36.0); MEAN CORPUSCULAR VOLUME 106.5 fL (81.0-99.0); MEAN PLATELET VOLUME 9.8 fL (7.9-10.8); MONOCYTES # (AUTO) 0.5 10^3/uL (0.0-1.0); NEUTROPHILS # (AUTO) 3.4 10^3/uL (1.5-6.6); NEUTROPHILS % (AUTO) 60.4 %; PLT - PLATELET COUNT 296 10^3/uL (130-450); RED BLOOD COUNT 4.63 10^6/uL (4.20-5.40); RED CELL DISTRIBUTION WIDTH 13.2 % (12.0-15.0); WHITE BLOOD COUNT 5.7 x10^3/uL (4.8-10.8)
[2023-01-01 12:33] LABS: ALBUMIN/GLOBULIN RATIO 1.2 (1.0-2.2); ALKALINE PHOSPHATASE 87 IU/L (42-121); ALT ALANINE AMINOTRANSFERASE 33 IU/L (10-60); AST ASPARTATE AMINOTRANSFERASE 36 IU/L (10-42); BILIRUBIN,TOTAL 0.8 mg/dL (0.2-1.0); BUN - BLOOD UREA NITROGEN 6 mg/dL (6-20); CALCIUM 9.7 mg/dL (8.5-10.3); CARBON DIOXIDE - CO2 28 mmol/L (21-32); CHLORIDE 103 mmol/L (101-111); CHOL/HDL RATIO 2.1 (<4.4); CHOLESTEROL 202 mg/dL; CREATININE 0.6 mg/dL (0.4-1.0); GFR - MDRD 100 (>89); GLUCOSE 105 mg/dL (70-100); HDL CHOLESTEROL 98 mg/dL; LDL CHOLESTEROL,CALCULATED 91 mg/dL; LDL/HDL RATIO 0.9 (<4.4); POTASSIUM 3.9 mmol/L (3.5-5.0); SODIUM 139 mmol/L (135-145); TOTAL PROTEIN 7.3 g/dL (6.7-8.2); TRIGLYCERIDES 65 mg/dL; VLDL CHOLESTEROL 13 mg/dL
[2023-01-01 12:42] LABS: THYROID STIMULATING HORMONE 3.3 uIU/mL (0.34-5.60)
[2023-01-01 12:48] LABS: ESTIMATED AVERAGE GLUCOSE 111 mg/dL (70-100); HEMOGLOBIN A1c% 5.5 % (4.27-6.07)
== END 2023-01-01 08:05 | disposition home or self-care (01) ==
LOC: LAB.N 08:04
PROVIDERS: ATTEND Internal Medicine
DX: E78.5 Hyperlipidemia, unspecified (principal); D53.9 Nutritional anemia, unspecified; R73.01 Impaired fasting glucose; R68.89 Other general symptoms and signs
CPT/HCPCS: 36415; 80053; 80061; 82607; 83036; 83721; 84443; 85025

== ENCOUNTER 2023-02-07 08:42 | Outpatient (CLI) | payer MEDICARE, MEDICAID ==
--- NOTE | 2023-02-08 08:58 | Mammography Report ---
BILATERAL DIGITAL SCREENING MAMMOGRAM 3D/2D: 02/07/2023 CLINICAL: Baseline exam. Routine screening. No prior exams were available for comparison. Both breasts are almost entirely fatty (category a/<25% glandular tissue). There are benign calcifications in the right breast. No significant masses, calcifications, or other findings are seen in either breast. IMPRESSION: BENIGN There is no mammographic evidence of malignancy. A 1 year screening mammogram is recommended. Based on the Tyrer Cuzick model (a risk assessment model) the patients lifetime risk is 4.2% and her 10 year risk is 2.1%. According to the ACR, ACS, and NCCN guidelines, an annual breast MRI exam elsa g with mammogram is recommended if the patients lifetime risk is 20% or greater. This exam was interpreted at Station ID: [id number]. NOTE: For mammograms, a report in lay terms will be sent to the patient. Approximately 15% of breast malignancies will not be visualized mammographically. In the management of a palpable breast mass, a negative mammogram must not discourage biopsy of a clinically suspicious lesion. Electronically Signed By: Raz Camejo M.D. acr/flora:02/07/2023 12:19:39 letter sent: No_Letter ACR BI-RADS Category 2: Benign Finding(s) 3342F PARENCHYMAL PATTERN: (F) - The breast(s) demonstrate(s) diffuse fatty replacement. BI-RADS CATEGORY: (2) - 2 Mammogram [id number] 1 year screening LATERALITY: (B)
== END 2023-02-07 08:43 | disposition home or self-care (01) ==
LOC: DI 08:42
PROVIDERS: ATTEND Internal Medicine
DX: Z12.31 Encounter for screening mammogram for malignant neoplasm of breast (principal)

== ENCOUNTER 2023-02-07 08:42 | Outpatient (CLI) | payer MEDICARE, MEDICAID ==
--- NOTE | 2023-02-07 11:39 | DEXA Report ---
PROCEDURE: Dexa Spine and/or Hip INDICATIONS: POST MENOPAUSAL TECHNIQUE: Dual energy x-ray absorptiometry (DXA) was performed on a [employer] System. Regions measur ed are the AP Spine, femoral neck, and if needed forearm. COMPARISON: None FINDINGS: Lumbar Spine: Bone Mineral Density 1.1-3 g/cm/cm,T score -0.5. Normal bone density Left Femoral Neck: Bone Mineral Density 0.839 g/cm/cm, T score -1.4. Osteopenia Left Hip: Bone Mineral Density 0.824 g/cm/cm,T score -1.5. Osteopenia (T score greater or equal to -1.0: NORMAL) (T score from -1.1 to -2.4: OSTEOPENIA) (T score less than or equal to -2.5 to: OSTEOPOROSIS) Impression: By WHO criteria, this patient has mild osteopenia. Patient is at increased risk for fracture. Normal bone mineral density of the lumbar spine. Osteopenia of the hip. Patients with diagnosis of osteoporosis or osteopenia should have regular bone mineral density assess ment. For those eligible for Medicare, routine testing is allowed once every 2 years. Testing frequ ency can be increased for patients who have rapidly progressing disease or for those who are receivin g medical therapy to restore bone mass. Reviewed by: Robbie Alcantara MD on 02/07/2023 11:38 AM PDT Approved by: Robbie Alcantara MD on 02/07/2023 11:38 AM PDT Station ID: [id number]
== END 2023-02-07 08:43 | disposition home or self-care (01) ==
LOC: DI 08:42
PROVIDERS: ATTEND Internal Medicine
DX: Z78.0 Asymptomatic menopausal state (principal); M85.89 Other specified disorders of bone density and structure, multiple sites

== ENCOUNTER 2023-06-13 08:07 | Outpatient (CLI) | payer MEDICARE, MEDICAID ==
--- NOTE | 2023-06-13 16:34 | CT Report ---
PROCEDURE: Low Dose Lung Cancer Screen INDICATIONS: CIGARETTE SMOKER TECHNIQUE: A CT scan of the chest was performed. Intravenous contrast media was not administered. Images were re corded and evaluated at appropriate window settings. Reformats: axial MIP of the chest, coronal and s agittal. For radiation dose reduction, the following was used: automated exposure control, adjustment of mA and/or kV according to patient size. COMPARISON: None. FINDINGS: Image quality: Good given low-dose technique. Prior cancer history: No Lungs and pleura: Two right upper lobe solitary pulmonary nodules measuring 2 mm (3/59, 82). Marked a pical predominant centrilobular and paraseptal edema. Linear atelectasis in the middle lobe and lingu la. No pleural effusion or pneumothorax. Mediastinum: Heart size is normal. No pericardial effusion. No large vessel abnormality. No mediastin al adenopathy by size criteria. Moderate calcification of the thoracic aorta. Moderate coronary vess el calcifications. Chest wall and lower neck: Thyroid is unremarkable. No axillary or supraclavicular adenopathy by size . Bones: No acute fracture. No aggressive appearing lytic or blastic osseous lesion. Moderate multileve l degenerative changes of the spine. Upper Abdomen: Limited noncontrast images of the upper abdomen demonstrate cholecystectomy. Calcifica tion of the abdominal aorta. IMPRESSION: 1.Two right upper lobe solitary pulmonary nodules measuring 2 mm. Lung RAD: 2 - Benign. Recommendation: Continue annual screening in 12 Months with LDCT 2. Coronary Arterial Calcification - Moderate or Severe. Consider cardiology referral. 3. Marked emphysema. Reviewed by: Tino Siegel MD on 06/13/2023 4:32 PM PDT Approved by: Tino Siegel MD on 06/13/2023 4:32 PM PDT Station ID: [id number]
== END 2023-06-13 08:08 | disposition home or self-care (01) ==
LOC: DI 08:07
PROVIDERS: ATTEND Internal Medicine
DX: Z12.2 Encounter for screening for malignant neoplasm of respiratory organs (principal); F17.210 Nicotine dependence, cigarettes, uncomplicated; R91.8 Other nonspecific abnormal finding of lung field; I25.10 Atherosclerotic heart disease of native coronary artery without angina pectoris; J43.9 Emphysema, unspecified

== ENCOUNTER 2023-08-10 08:04 | Outpatient (CLI) | payer MEDICARE, MEDICAID | END 2023-08-10 23:59 | disposition critical access hospital (66) | LOC: EMS 08:04 | DX: R53.81 Other malaise (principal); I48.91 Unspecified atrial fibrillation; R44.3 Hallucinations, unspecified | CPT/HCPCS: A0425; A0427 ==

== ENCOUNTER 2023-08-10 08:34 | Inpatient (IN) | payer MEDICARE, MEDICAID ==
[2023-08-10] MEDS ORDERED: SODIUM CHLORIDE 0.9% 1,000 ML IV STA ×3 (08:52→10:45)
[2023-08-10] MEDS ORDERED: diphenhydrAMINE INJ 50 MG/ML VIAL IVP STA (08:55)
--- NOTE | 2023-08-10 08:55 | ED Physician Documentation ---
PD HPI NVD - Stated complaint Stated Complaint: NOT FEELING WELL - Chief complaint Chief Complaint: Abd Pain - History obtained from History obtained from: Patient, EMS - History of Present Illness Timing - onset: How many days ago (4-5) Timing - duration: Days (4-5) Timing - details: Gradual onset (4 to 5 days of general weakness, nausea with some episodes of vomiting. No diarrhea. 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: Hysterectomy, Oophrectomy HEENT: Tonsil/Adenoidectomy - Present Medications Home Medications: Ambulatory Orders Medication Instructions Recorded Confirmed Amlodipine Besylate [Norvasc] 10 mg PO DAILY 12/20/20 08/10/23 Atorvastatin Calcium 40 mg PO QPM 12/20/20 08/10/23 Budesonide/Formoterol Fumarate 2 puffs INH BID 12/20/20 08/10/23 [Symbicort 160-4.5 Mcg Inhaler] Albuterol Sulf [Ventolin Hfa 2 puffs INH Q4HR PRN 08/10/23 08/10/23 Inhaler] Ipratropium [place] 2 spr [id number] TID PRN 08/10/23 08/10/23 - Allergies Allergies/Adverse Reactions: Allergies Allergy/AdvReac Type Severity Reaction Status Date / Time lisinopril Allergy weakness Verified 04/14/18 19:59 nickel [Nickel] AdvReac Rash Verified 04/14/18 19:59 - Social History Does the pt smoke?: Yes Smoking Status: Current every day smoker Does the pt drink ETOH?: Yes Does the pt have substance abuse?: No PD ED PE NORMAL - Vitals Vital signs reviewed: Yes - General General: No acute distress, Well developed/nourished. No: Alert and oriented X 3 (blank stare with oriented to person and sluggish responses initially. ) - HEENT HEENT: Pharynx benign - Neck Neck: Supple, no meningeal sign, No adenopathy - Cardiac Cardiac: No murmur. No: RRR (irregular but rate mild tachy about 100-110) - Respiratory Respiratory: No respiratory distress, Clear bilaterally - Abdomen Abdomen: Normal bowel sounds, Soft, Non distended, Other (tender upper abd right more than left with guarding. No percussion tender. ) - Derm Derm: Normal color. No: Warm and dry (cool to touch) - Extremities Extremities: Normal ROM s pain, No edema, No calf tenderness / cord - Neuro Neuro: No motor deficit, No sensory deficit. No: Alert and oriented X 3 (oriented to person and dazed stare at first, improved with early fluids/warming to fully alert. ) Results - Vitals Vitals: Vital Signs - 24 hr 08/10/23 08/10/23 08/10/23 08:45 09:17 09:45 Temperature 34.1 C L 33 C L Heart Rate 91 99 97 Respiratory 11 L 12 16 Rate Blood Pressure 84/23 L 88/52 L 68/51 L O2 Saturation 90 L 96 96 If not protocol 2 : Oxygen Flow, liters/minute 08/10/23 08/10/23 08/10/23 10:00 10:15 11:00 Temperature 34.9 C L 36 C L 36.4 C L Heart Rate 103 H 92 91 Respiratory 15 12 15 Rate Blood Pressure 61/50 L 74/48 L 81/61 L O2 Saturation 99 97 100 If not protocol 2 : Oxygen Flow, liters/minute 08/10/23 12:00 Temperature 36 C L Heart Rate 94 Respiratory 14 Rate Blood Pressure 80/31 L O2 Saturation 99 If not protocol 2 : Oxygen Flow, liters/minute Oxygen O2 Source Nasal cannula - EKG (time done) 8:51 EKG releavant findings:: EKG personally interpreted by author of this note. Relevant findings are: Rate: Rate (enter#) (114) Rhythm: Atrial fibrillation Intervals: RBBB (present on ECG Apr 2018) Ischemia: Non specific changes. No: ST elevation c/w ischemia, ST depression Compare to prior EKG: Changed from prior EKG (RBBB present prior. atrial fib new. ) 12:41 EKG releavant findings:: EKG personally interpreted by author of this note. Relevant findings are: Rhythm: NSR Intervals: RBBB Ischemia: Normal ST segments, Non specific changes. No: ST elevation c/w ischemia, ST depression Compare to prior EKG: Changed from prior EKG (now NSR.) - Labs Labs: Laboratory Tests 08/10/23 08/10/23 08/10/23 09:05 09:17 09:17 WBC 14.7 H RBC 3.71 L Hgb 12.8 Hct 38.8 MCV 104.6 H MCH 34.5 H MCHC 33.0 RDW 12.5 Plt Count 188 MPV 10.4 Neut # (Auto) Not Reportable Lymph # (Auto) Not Reportable [place] # (Auto) Not Reportable Eos # (Auto) Not Reportable Baso # (Auto) Not Reportable Absolute Nucleated RBC Not Reportable Total Counted 100 Band Neuts % (Manual) 0 Abnorm Lymph % (Manual) 0 Nucleated RBC % Not Reportable Neutrophils # (Manual) 13.7 H Lymphocytes # (Manual) 0.3 L Monocytes # (Manual) 0.7 Eosinophils # (Manual) 0.0 Basophils # (Manual) 0.0 Differential Comment MANUAL DIFFERENTIAL WBC Morphology NORMAL APPEARANCE Platelet Estimate NORMAL (130-450,000) Platelet Morphology NORMAL APPEARANCE RBC Morph Micro Appear 2+ MACROCYTOSIS Sodium 133 L Potassium 3.0 L Chloride 96 L Carbon Dioxide 20 L Anion Gap 17.0 H BUN 41 H Creatinine 3.5 H Estimated GFR (MDRD) 13 L Glucose 128 H Lactic Acid Calcium 10.7 H Magnesium 1.8 Total Bilirubin 0.4 AST 20 ALT 17 Alkaline Phosphatase 87 Total Creatine Kinase Troponin I High Sens Total Protein 6.5 Albumin 3.4 Globulin 3.1 Albumin/Globulin Ratio 1.1 Lipase < 10 L Nasal Adenovirus (PCR) NOT DETECTED Nasal B. parapertussis DNA (PCR) NOT DETECTED Nasal Coronavir 229E PCR NOT DETECTED Nasal Coronavir HKU1 PCR NOT DETECTED Nasal Coronavir NL63 PCR NOT DETECTED Nasal Coronavir OC43 PCR NOT DETECTED Nasal Enterovir/Rhinovir PCR NOT DETECTED Nasal Influenza B PCR NOT DETECTED Nasal Influenza A PCR NOT DETECTED Nasal Parainfluen 1 PCR NOT DETECTED Nasal Parainfluen 2 PCR NOT DETECTED Nasal Parainfluen 3 PCR NOT DETECTED Nasal Parainfluen 4 PCR NOT DETECTED Nasal RSV (PCR) NOT DETECTED Nasal B.pertussis DNA PCR NOT DETECTED Nasal C.pneumoniae (PCR) NOT DETECTED Krzysztof Human Metapneumo PCR NOT DETECTED Nasal M.pneumoniae (PCR) NOT DETECTED Nasal SARS-CoV-2 (PCR) NOT DETECTED Ethyl Alcohol < 10.0 08/10/23 08/10/23 08/10/23 09:17 09:17 09:17 WBC RBC Hgb Hct MCV MCH MCHC RDW Plt Count MPV Neut # (Auto) Lymph # (Auto) [place] # (Auto) Eos # (Auto) Baso # (Auto) Absolute Nucleated RBC Total Counted Band Neuts % (Manual) Abnorm Lymph % (Manual) Nucleated RBC % Neutrophils # (Manual) Lymphocytes # (Manual) Monocytes # (Manual) Eosinophils # (Manual) Basophils # (Manual) Differential Comment WBC Morphology Platelet Estimate Platelet Morphology RBC Morph Micro Appear Sodium Potassium Chloride Carbon Dioxide Anion Gap BUN Creatinine Estimated GFR (MDRD) Glucose Lactic Acid 4.6 H* Calcium Magnesium Total Bilirubin AST ALT Alkaline Phosphatase Total Creatine Kinase 61 Troponin I High Sens 38.5 H* Total Protein Albumin Globulin Albumin/Globulin Ratio Lipase Nasal Adenovirus (PCR) Nasal B. parapertussis DNA (PCR) Nasal Coronavir 229E PCR Nasal Coronavir HKU1 PCR Nasal Coronavir NL63 PCR Nasal Coronavir OC43 PCR Nasal Enterovir/Rhinovir PCR Nasal Influenza B PCR Nasal Influenza A PCR Nasal Parainfluen 1 PCR Nasal Parainfluen 2 PCR Nasal Parainfluen 3 PCR Nasal Parainfluen 4 PCR Nasal RSV (PCR) Nasal B.pertussis DNA PCR Nasal C.pneumoniae (PCR) Krzysztof Human Metapneumo PCR Nasal M.pneumoniae (PCR) Nasal SARS-CoV-2 (PCR) Ethyl Alcohol - Rads (name of study) chest xray Relevant Findings:: Prelim report reviewed, EMP independent interpretation of test (no acute infiltrates) head CT Relevant Findings:: Prelim report reviewed (no acute intracranial pathology), EMP independent interpretation of test abd/pelvic CT Relevant Findings:: Prelim report reviewed (no obstruction. Diverticulosis. ), EMP independent interpretation of test (no acute process noted. ) PD Medical Decision Making - ED course Complexity details: considered differential (patient was out on deck steps when EMS arrived. She said just there few minutes. She felt cold and was confused. States NV for 4-5 days. Some abd pain. Has multiple issues going on with concern of sepsis, infection, hyupothermia, confusion, hypotension, and dehyudration. ), d/w patient Reviewed Lab Results: Her CBC showing elevated white count and her lactate is eleved over 4. Concern f or sepsis. blood count 12.8 Hgb, so no anemia. Creatinine is acutely elevated at 3.5 with prior tests in 0.8 range. Acute renal failure/injury. We did place a norris for acute illness and for temp monitoring as was hypothermic. Also with warming unit. She not have much output from the norris, c/w significant dehydration and concern for degree of renal insufficiency. Lytes showing some low potassium. She was in atrial fib for EMS who gave Diltiazem 20 mg IV with slowing of the heart rate but arrives still atrial fib 110-120. BP low and could be multifactirial. Given some IV fluids. Initially just 1 liter until getting CXR to evaluate for CHF. legs not edematous but might not be if just acute pulmonary failure. CXR was looking okay and HR remained controlled, so gave more fluid. Her BP was still softly low with SBP 88-100. I did discuss this with Hospitlaist. Will place pt in ICU given the complexity of problems. Subsequently she did convert to NSR and breathing remained good. Lung sounds still clear. CT head due to altered mental status and some headache complaint. Abd/pelvic CT due to some abd tenderness. No acute on either aside form some perinephric stranding without hydroureter nor stone. Consider pyelonephritis and I gave Rocephin for that. Nasal PCR negative for major viruses. CXR without pneumonia. Hospitalist updated with CT results and will write admission orders. Pt is appearing more stable with HR, sats, breathing status and very much more alert and conversant, oriented. Body temp coming up to 37.4 now. Transfer to ICU in stable condition. I did not initiate pressors in ER as wanting to see what warming and fluids did for her instead, with her normotensive (98-107 systolic) by time of moving from ED. ED course: The patient arrived stuporous and confused, oriented to person with a somewhat blank stare. She was cold feeling and had a core temperature of 34 but was not shivering. She also had been ill for 4 to 5 days with poor oral intake. A Norris catheter was placed due to critical illness and a warming blanket was placed. She had an IV in place already. She was in atrial fibrillation with a rate controlled fairly well at approximately 100-110. It had been faster en route and EMS had given some diltiazem. This may account for some of her lower blood pressure in conjunction with dehydration. Initial labs showed a significant acute kidney injury of 3.5 creatinine with a baseline 0.8 on prior lab testing as we have on record. There was minimal urine output from the catheter. She continues receiving IV fluids with an initial 1- 1/2 L so far and still running. Blood pressure still remains approximately 88- 100 systolic. Her temperature is now up to 36 rising slowly. Heart rate remains approximately 90-105. She was given 1K rider of potassium but did not want to give too much. Her potassium was 3.3 and I thought this would help in the lieu of the atrial fibrillation. Recheck subsequently, the patient is now converted to sinus rhythm and is at a rate of approximately 70-80. Blood pressure still remains mildly hypotensive. I do feel better about giving more fluids now at this point. Her lungs are clear. Oxygenation is adequate. Chest x-ray did not show any obvious infiltrates. Head CT was without any acute findings. Abdominal CT did not show any obvious stones or obstructions but some perinephric stranding. Consideration could be for her UTI. No other obvious cause for the upper abdominal tenderness. I did talk with the hospitalist who will admit the patient to the ICU. - Critical Care Time(min): 55 Comments: multisystem abnormalities with critical temp, HR, hypotension, SCOOTER, and other lab abnormalities. Time Includes: Direct patient care, Reassess patient, Document care, Coordinate care, Medical consult Data interpretation: Labs, Pulse ox, CXR Procedures excluded from critical care time: EKG Departure - Departure Disposition: 66 [facility] DC/Xfer Clinical Impression: Hypothermia, Nausea and vomiting, Atrial fibrillation, Dehydration, SCOOTER (acute kidney injury), Upper abdominal pain, Hypotension Condition: Serious Record reviewed to determine appropriate education?: Yes Discharge Date/Time: 08/10/23 13:42
--- NOTE | 2023-08-10 09:21 | XRAY Report ---
PROCEDURE: Chest 1 View X-Ray INDICATIONS: ill for 4 days TECHNIQUE: One view of the chest was acquired. COMPARISON: CT chest 06/13/2023 FINDINGS: Surgical changes and devices: None. Lungs and pleura: No pleural effusions or pneumothorax. Lungs are clear. Mediastinum: Mediastinal contours appear normal. Heart size is enlarged. Bones and chest wall: No suspicious bony lesions. Overlying soft tissues appear unremarkable. IMPRESSION: No acute pulmonary process. Reviewed by: Silvana Ngo MD on 08/10/2023 9:20 AM [facility] Approved by: Silvana Ngo MD on 08/10/2023 9:20 AM [facility] Station ID: [id number]
[2023-08-10 09:28] LABS: BASOPHILS % (AUTO) 0.1 %; MEAN PLATELET VOLUME 10.4 fL (7.9-10.8); RED CELL DISTRIBUTION WIDTH 12.5 % (12.0-15.0)
[2023-08-10 09:31] LABS: EOSINOPHILS % (AUTO) 0.4 %; HCT - HEMATOCRIT 38.8 % (37.0-47.0); HGB - HEMOGLOBIN 12.8 g/dL (12.0-16.0); LYMPHOCYTES % (AUTO) 2.9 %; MEAN CORPUSCULAR HEMOGLOBIN 34.5 pg (27.0-31.0); MEAN CORPUSCULAR VOLUME 104.6 fL (81.0-99.0); MONOCYTES % (AUTO) 4.4 %; NEUTROPHILS % (AUTO) 89.5 %; PLT - PLATELET COUNT 188 10^3/uL (130-450); RED BLOOD COUNT 3.71 10^6/uL (4.20-5.40); WHITE BLOOD COUNT 14.7 x10^3/uL (4.8-10.8)
[2023-08-10 09:35] LABS: ABNORMAL LYMPHS % (MANUAL) 0 %; BAND NEUTROPHILS % (MANUAL) 0 %
[2023-08-10 09:40] LABS: ALBUMIN 3.4 g/dL (3.2-5.5); ALBUMIN/GLOBULIN RATIO 1.1 (1.0-2.2); ALKALINE PHOSPHATASE 87 IU/L (42-121); ALT ALANINE AMINOTRANSFERASE 17 IU/L (10-60); AST ASPARTATE AMINOTRANSFERASE 20 IU/L (10-42); BILIRUBIN,TOTAL 0.4 mg/dL (0.2-1.0); BUN - BLOOD UREA NITROGEN 41 mg/dL (6-20); CALCIUM 10.7 mg/dL (8.5-10.3); CARBON DIOXIDE - CO2 20 mmol/L (21-32); CHLORIDE 96 mmol/L (101-111); CREATININE 3.5 mg/dL (0.6-1.3); ETOH - ETHANOL < 10.0 mg/dL; GFR - MDRD 13 (>89); GLUCOSE 128 mg/dL (74-104); LIPASE < 10 U/L (11-82); MAGNESIUM 1.8 mg/dL (1.7-2.3); SODIUM 133 mmol/L (135-145); TOTAL PROTEIN 6.5 g/dL (6.4-8.9)
[2023-08-10] MEDS ORDERED: POTASSIUM CHLOR 10 MEQ/100 ML 10 MEQ/100 ML BAG IV ONE (09:49)
[2023-08-10 10:01] LABS: DIFFERENTIAL COMMENT MANUAL DIFFERENTIAL; LYMPHOCYTES # (MANUAL) 0.3 10^3/uL (1.5-3.5); LYMPHOCYTES % (MANUAL) 2 %; MONOCYTES # (MANUAL) 0.7 10^3/uL (0.0-1.0); NEUTROPHILS # (MANUAL) 13.7 10^3/uL (1.5-6.6); PLATELET ESTIMATE, MANUAL NORMAL (130-450,000) (NORMAL); PLATELET MORPHOLOGY NORMAL APPEARANCE (NORMAL); RBC MORPHOLOGY (MULTIPLE) 2+ MACROCYTOSIS (NORMAL); WBC MORPHOLOGY (MULTIPLE) NORMAL APPEARANCE (NORMAL)
[2023-08-10 10:38] LABS: B. PARAPERTUSSIS- RESP PCR PAN NOT DETECTED; B. PERTUSSIS- RESP PCR PANEL NOT DETECTED; C. PNEUMONIAE- RESP PCR PANEL NOT DETECTED; CORONAVIRUS 229E-RESP PCR NOT DETECTED; CORONAVIRUS HKU1-RESP PCR NOT DETECTED; CORONAVIRUS NL63-RESP PCR NOT DETECTED; CORONAVIRUS OC43-RESP PCR NOT DETECTED; HUMAN METAPNEUMOVIRUS NOT DETECTED; INFLUENZA A- RESP PCR PANEL NOT DETECTED; INFLUENZA B - RESP PCR PANEL NOT DETECTED; M. PNEUMONIAE- RESP PCR PANEL NOT DETECTED; PARAINFLUENZA VIRUS 1 NOT DETECTED; PARAINFLUENZA VIRUS 2 NOT DETECTED; PARAINFLUENZA VIRUS 3 NOT DETECTED; PARAINFLUENZA VIRUS 4 NOT DETECTED; RHINOVIRUS/ENTEROVIRUS NOT DETECTED; RSV- RESP PCR PANEL NOT DETECTED; SARS-CoV-2 -RESP PCR PANEL NOT DETECTED
--- NOTE | 2023-08-10 12:01 | CT Report ---
PROCEDURE: HEAD WO INDICATIONS: headache/confused/nausea TECHNIQUE: Noncontrast 4.5 mm thick angled axial sections acquired from the foramen magnum to the vertex. For r adiation dose reduction, the following was used: automated exposure control, adjustment of mA and/or kV according to patient size. COMPARISON: None. FINDINGS: Image quality: Excellent. CSF spaces: Basal cisterns are patent. No extra-axial fluid collections. Ventricles are normal in size and shape. Brain: No midline shift. No intracranial masses or hemorrhage. Adam-white matter interface is norm al. Skull and face: Calvarium and visualized facial bones are intact, without suspicious lesions. Sinuses: Visualized sinuses and mastoids are clear. IMPRESSION: No acute intracranial pathology. Reviewed by: Silvana Ngo MD on 08/10/2023 12:00 PM [facility] Approved by: Silvana Ngo MD on 08/10/2023 12:00 PM [facility] Station ID: [id number]
--- NOTE | 2023-08-10 12:06 | CT Report ---
PROCEDURE: ABDOMEN/PELVIS WO INDICATIONS: N/V/AP right,upper TECHNIQUE: A CT scan of the abdomen and pelvis was performed without the use of intravenous contrast. Images we re recorded and evaluated at appropriate window settings. Reformats: coronal and sagittal. For radiat ion dose reduction, the following was used: automated exposure control, adjustment of mA and/or kV ac cording to patient size. COMPARISON: None. FINDINGS: Image quality: Excellent. Lung bases and heart: Unremarkable. Liver: No solid mass. Gallbladder and biliary tree: Removed. Spleen: No splenomegaly. Pancreas: No pancreatic ductal dilation. Adrenals: No adrenal nodule. Kidneys and ureters: No hydronephrosis. No renal cystic lesion which requires follow up. No solid mas s. Mild appearance of bilateral perinephric stranding. Bowel and peritoneum: No bowel distension. No pathologic free fluid. Scattered diverticula. Lymph nodes: No central or retroperitoneal adenopathy. Vessels: No infrarenal aortic aneurysm. PELVIS Reproductive organs: Unremarkable. Bladder: Bladder is collapsed with a Giraldo catheter, limiting evaluation. Pelvic lymph nodes: No pelvic adenopathy by size criteria. Bones: No aggressive osseous abnormality. IMPRESSION: No obstruction. Diverticulosis. Reviewed by: Silvana Ngo MD on 08/10/2023 12:05 PM [facility] Approved by: Silvana Ngo MD on 08/10/2023 12:05 PM PST Station ID: [id number]
[2023-08-10] MEDS ORDERED: ONDANSETRON 4 MG/2 ML VIAL IVP PRN (12:09)
[2023-08-10] MEDS ORDERED: cefTRIAXone 1 GM VIAL IVP STA (12:11)
[2023-08-10] MEDS ORDERED: ONDANSETRON 4 MG/2 ML VIAL IVP STA (12:12)
[2023-08-10] MEDS ORDERED: SODIUM CHLORIDE 0.9% 1,000 ML IV SCH (12:12)
[2023-08-10 12:23] LABS: BILIRUBIN,URINE NEGATIVE (NEGATIVE); GLUCOSE, URINE (UA) NEGATIVE (NEGATIVE); KETONES,URINE (UA) NEGATIVE (NEGATIVE); LEUKOCYTE ESTERASE, URINE LARGE (NEGATIVE); NITRITE,URINE NEGATIVE (NEGATIVE); OCCULT BLOOD,URINE SMALL (NEGATIVE); PROTEIN,URINE >=300 mg/dL (NEGATIVE); UROBILINOGEN,URINE 0.2 (NORMAL) E.U./dL (NORMAL)
[2023-08-10 12:24] LABS: CLARITY,URINE HAZY (CLEAR)
--- NOTE | 2023-08-10 12:30 | HISTORY & PHYSICAL EXAMINATION ---
Chief Complaint - Chief Complaint Chief Complaint: Weakness History of Present Illness - Admitted From Admitted From:: ED - History Obtained From History obtained from: ED provider and chart review - History of Present Illness HPI Comment/Other: This is a 67-year-old female with a history of restrictive lung disease vs COPD/asthma, hypertension, CAD, prolonged abdominal wall wound that was followed at wound clinic thru 12/2021, history of a strangulated hernia after an ovarian cyst removal which resulted in a large ventral hernia and the abdominal wound. The patient lives alone. She is checked on by her daughter daily. For the last 4 days the patient has been getting weaker, having less appetite, got nausea with dry heaves, but did not want to be brought to the ER. She might have had a fever and might have had chills. She denied diarrhea. Today the patient was even weaker, had a headache, and the daughter thought the pt was "hallucinating". EMS was called. At the scene, paramedics gave Zofran for nausea. She had syst BP 140 and was found to be in A-fib at a rate of 130-170, so was given Diltiazem 20 mg IV push x1. She was brought to ER and found to have a blood pressure of 80 systolic, was hypothermic at 94 Fahrenheit and in new onset of A-fib with a rate of 130. Other work-up shows that she has an elevated Lactic Acid of 4.6, elevated WBC 14.7, Na 133, K 3.0, BUN/creat 41/3.5 (her baseline creat is 0.8), normal Lipase level. Her CT imaging of the head was unremarkable, chest x-ray unremarkable, but CT of the abdomen shows bilateral mild pyelonephrosis with no obstruction and no stones and her ventral hernia is seen. Her UA shows large leukocyte Esterase, many bacteria. Her respiratory PCR is negative. Patient was ordered a warming unit, and has received 3L rapid crystalloid IV fluids in the ER, and a repeat lactic acid level is pending. A Giraldo catheter was placed in the ER, but there has been no urine output for about 2 hours. She converted to sinus rhythm while in the ER. She has been started on empiric iv Ceftriaxone after blood cx were sent off. The ED provider then spoke to me. The patient will be admitted to the ICU in critical condition for treating septic shock and pyelonephritis. I spoke to the patient about her CODE BLUE wishes and she wants to be a Full Code. History - Past Medical History Cardiovascular: reports: Hypertension, High cholesterol, Angina Respiratory: reports: COPD, Emphysema, Shortness of breath Endocrine/Autoimmune: reports: None GI: reports: GERD, Cholelithiasis : reports: Incontinence, Nocturia HEENT: reports: Chronic sinusitis, Other Psych: reports: Depression Musculoskeletal: reports: Osteoarthritis Derm: reports: Eczema, Other MRSA Hx?: No - Past Surgical History General: reports: Cholecystectomy /SYSTEMS MANAGEMENT CONSULTANT: reports: Hysterectomy, Oophrectomy HEENT: reports: Tonsil/Adenoidectomy - Family & Social History Living arrangement: At home Living Situation: Alone - Substance History Use: Uses substance without health or social issues: NONE - POLST Patient has POLST: No Meds/Allgy - Home Medications Home Medications: Ambulatory Orders Medication Instructions Recorded Confirmed Amlodipine Besylate [Norvasc] 10 mg PO DAILY 12/20/20 08/10/23 Atorvastatin Calcium 40 mg PO QPM 12/20/20 08/10/23 Budesonide/Formoterol Fumarate 2 puffs INH BID 12/20/20 08/10/23 [Symbicort 160-4.5 Mcg Inhaler] Albuterol Sulf [Ventolin Hfa 2 puffs INH Q4HR PRN 08/10/23 08/10/23 Inhaler] Ipratropium [place] 2 spr [id number] TID PRN 08/10/23 08/10/23 - Allergies Allergies/Adverse Reactions: Allergies Allergy/AdvReac Type Severity Reaction Status Date / Time lisinopril Allergy weakness Verified 04/14/18 19:59 nickel [Nickel] AdvReac Rash Verified 04/14/18 19:59 Review of Systems - Constitutional Constitutional: reports: Fatigue, Malaise, Weakness, Poor appetite - Gastrointestinal Gastrointestinal: reports: Abdominal pain, Nausea - Neurological Neurological: reports: General weakness, Other (Fogginess this morning which the daughter interpreted as "hallucinations") - All Other Systems All Other Systems: reports: Reviewed and negative Exam - Vital Signs Reviewed Vital Signs: Yes Vital Signs: Vital Signs x48h Temp Pulse Resp BP Pulse Ox O2 Flow Rate 08/10/23 12:00 36 C L 94 14 80/31 L 99 2 08/10/23 11:00 36.4 C L 91 15 81/61 L 100 08/10/23 10:15 36 C L 92 12 74/48 L 97 08/10/23 10:00 34.9 C L 103 H 15 61/50 L 99 2 08/10/23 09:45 33 C L 97 16 68/51 L 96 08/10/23 09:17 99 12 88/52 L 96 2 08/10/23 08:45 34.1 C L 91 11 L 84/23 L 90 L - Physical Exam General Appearance: positive: No acute distress, Other (Moderately obese (BMI 39)) Eyes Bilateral: positive: EOMI, Other (Swelling 1+ edema around left eye. She is laying in huddled position on her L side.) ENT: positive: Dry mucous membranes Neck: positive: Nml inspection, No JVD Respiratory: positive: No respiratory distress, Breath sounds nml Cardiovascular: positive: Regular rate & rhythm (Distant heart sounds due to obesity and due to COPD), No murmur Abdomen: positive: Non-tender, Other (Obese with a very large pannus) Skin: positive: Warm, Dry, Pallor Extremities: positive: Non-tender, Other (Trace pretibial edema both legs) Neurologic/Psychiatric: positive: Oriented x3, Motor nml Sepsis Event Note (H) - Evaluation Current Stage of Sepsis: Septic shock Possible source of Sepsis: positive: Genitourinary - Sepsis Criteria Sepsis Criteria: Recorded Temperature greater than 38.3C or Less than 36C, Recorded Heart Rate greater than 90 bpm, WBC count greater than 10% bands, WBC count greater than 12,000 or less than 4000, FINISHING OPERATOR: altered consciousness (unrelated to primary neuro pathology), SBP less than 90 mmHg, Renal: urine output less than 0.5ml/kg/hr for 2 hours or creatinine gr, Metabolic: lactate > 2 mmol/L Conclusion/Plan - Problem List (1) Septic shock Conclusion/Plan: This patient has multiple criteria for septic shock: Temperature was less than 36 C, heart rate greater than 90, white blood count greater than 12, new FINISHING OPERATOR altered mental status, systolic BP less than 90, very low urine output, lactic acid greater than 2 Plan: Admit to the ICU on telemetry Continue with aggressive crystalloid management Follow her lactic acid level until normalized Treat the presumed source of infection, her pyelonephritis Check troponins x2 if they are doubling then a cardiac event is also happening We will obtain an urgent Echo given the persistent shock. I called the Echo department and requested this be done urgently, and spoke to today's hazardous materials waste technician Diane, who said she will not be able to get to this today. However, we have no Echo service for the upcoming 3 days. Hold any BP meds that she may be on, await the reconciled med list to review. Bedrest in ICU, no OOB because of hypotension This patient is in critical condition. I updated the son and daughter at bedside today (2) SCOOTER (acute kidney injury) Conclusion/Plan: Her presenting BUN/creatinine is 41/1.5. Her usual creatinine is 0.8. I suspect this is from poor oral intake for the last 4 days and fluid losses from nausea vomiting and diarrhea Plan: Continue with IV crystalloid rehydration Avoid nephrotoxins Follow BUN/creatinine daily (3) New onset a-fib Conclusion/Plan: Patient presented with a heart rate of 1 30-1 70. After diltiazem given by paramedics, she converted to sinus rhythm while in the ER. I suspect the cause of the A-fib is from her underlying restrictive lung disease and the stress of the current infection and sepsis. Plan: We will obtain an echo to check her EF to determine what her [id number] score is. Because of her hypotension, will not give more meds for rate control We will check a set of troponins, if they are doubling in 3 hours then she is having an acute SC We will check her T4 and TSH to rule out hyperthyroidism (4) Pyelonephritis Conclusion/Plan: As per CT imaging. This is the cause of the septic shock Plan: Continue with IV antibiotics. We will give antiemetics, antipyretics and pain meds if needed (5) Restrictive lung disease Conclusion/Plan: As per history Plan: I will await her reconciled med list to resume any pulmonary meds that she is on. (6) Hyponatremia Conclusion/Plan: This is hypovolemic hyponatremia from inadequate oral intake and losses in vomiting and diarrhea Plan: Continue with IV containing NS Follow BMP every 12 hours (7) Hypokalemia Conclusion/Plan: I suspect the cause of this is excessive losses in vomiting and diarrhea Plan: She received a low-dose replacement in the ER, small amount because of the SCOOTER I will repeat her BMP this evening to see if she needs more gentle replacement Follow BMP daily - Lab Results Fish Bones: 08/10/23 09:17 08/10/23 16:35 - Diagnostic Imaging Results Diagnostic Imaging Results: positive: Final report reviewed - Other Other Results/Comments: Attestation: The patient is expected to be hospitalized for greater than 2 midnights and is expected to be discharged or transferred to another facility within 96 hours: Yes.
[2023-08-10 12:38] LABS: BACTERIA,URINE Many /HPF (None Seen); EPITHELIAL CELLS,UR FEW Transitional /HPF (<= Few); RBC,URINE 0-5 /HPF (0-5); SQUAMOUS EPITHELIAL CELL,UR FEW Squamous (<= Few); WBC CLUMPS,URINE PRESENT; WBC,URINE >25 /HPF (0-5)
[2023-08-10] MEDS: SODIUM CHLORIDE FLUSH 0.9% 10 ML SYRINGE IVP PRN (14:26)
--- NOTE | 2023-08-10 17:17 | PHARMACY PROGRESS NOTE ---
- Best Possible Medication History Admit Date and Time: 08/10/23 1209 Patient Interview: Completed Secondary Source(s): Physician records, Pharmacy records, Insurance records As the person ultimately responsible for medication therapy, providers are able to order a medication from an existing home medication list in [facility] via the "Reconcile Routine" prior to Confirmation of that medication by direct support staff. Such practice is discouraged except when the physician, in their clinical judgment, deems that a medical need exists for a medication without regard to previous use.
[2023-08-10] MEDS: SODIUM CHLORIDE FLUSH 0.9% 10 ML SYRINGE IVP SCH (17:19)
[2023-08-10 17:35] LABS: CALCIUM 9.8 mg/dL (8.5-10.3); CREATININE 3.3 mg/dL (0.6-1.3)
[2023-08-10] MEDS: BUDESONIDE 0.5 MG/2 ML NEB INH SCH (19:10)
[2023-08-10] MEDS: ACETAMINOPHEN 325 MG TABLET PO PRN ×2 (19:45→23:56)
--- NOTE | 2023-08-10 22:25 | XRAY Report ---
PROCEDURE: Chest 1 View X-Ray INDICATIONS: dyspnea TECHNIQUE: One view of the chest was acquired. COMPARISON: CXR and CT abdomen pelvis without contrast earlier today. FINDINGS: Surgical changes and devices: None. Lungs and pleura: Small to moderate left pleural effusion, increased. Mild bibasilar atelectasis. No pleural effusion. No pneumothorax. Mediastinum: Mediastinal contours appear normal. Heart size is secured. Bones and chest wall: No suspicious bony lesions. Overlying soft tissues appear unremarkable. IMPRESSION: Small to moderate left pleural effusion. Reviewed by: Darryl Willard MD on 08/10/2023 10:23 PM PST Approved by: Darryl Willard MD on 08/10/2023 10:23 PM PST Station ID: [id number]
[2023-08-10] MEDS: SODIUM CHLORIDE 0.9% 1,000 ML IV SCH (22:36)
[2023-08-10] MEDS: FAMOTIDINE 20 MG/2 ML VIAL IVP SCH (22:40)
[2023-08-10] MEDS: PROCHLORPERAZINE 10 MG/2 ML VIAL IVP PRN (22:40)
[2023-08-11] MEDS: SODIUM CHLORIDE FLUSH 0.9% 10 ML SYRINGE IVP SCH ×3 (00:23→17:31)
[2023-08-11] MEDS: LEVALBUTEROL 1.25 MG/3 ML NEB INH PRN (04:22)
[2023-08-11 04:32] LABS: EOSINOPHILS # (AUTO) 0.1 10^3/uL (0.0-0.7); EOSINOPHILS % (AUTO) 0.8 %; HCT - HEMATOCRIT 33.9 % (37.0-47.0); HGB - HEMOGLOBIN 10.9 g/dL (12.0-16.0); LYMPHOCYTES # (AUTO) 0.4 10^3/uL (1.5-3.5); LYMPHOCYTES % (AUTO) 4.4 %; MEAN CORPUSCULAR HEMOGLOBIN 33.9 pg (27.0-31.0); MEAN CORPUSCULAR HGB CONC 32.2 g/dL (32.0-36.0); MEAN CORPUSCULAR VOLUME 105.3 fL (81.0-99.0); MEAN PLATELET VOLUME 10.4 fL (7.9-10.8); MONOCYTES # (AUTO) 0.5 10^3/uL (0.0-1.0); MONOCYTES % (AUTO) 6.4 %; NEUTROPHILS # (AUTO) 6.5 10^3/uL (1.5-6.6); PLT - PLATELET COUNT 137 10^3/uL (130-450); RED BLOOD COUNT 3.22 10^6/uL (4.20-5.40); RED CELL DISTRIBUTION WIDTH 12.6 % (12.0-15.0); WHITE BLOOD COUNT 8.3 x10^3/uL (4.8-10.8)
[2023-08-11 04:46] LABS: CALCIUM, IONIZED 1.2 mmol/L (1.15-1.33); VBG PH 7.289 (7.31-7.41)
[2023-08-11] MEDS ORDERED: SODIUM CHLORIDE 0.9% 500 ML IV ONE (05:26)
[2023-08-11] MEDS: guaiFENesin 600 MG TABLET PO PRN (05:36)
[2023-08-11 05:48] LABS: CALCIUM 9.1 mg/dL (8.5-10.3); CREATININE 3.7 mg/dL (0.6-1.3); MAGNESIUM 1.5 mg/dL (1.7-2.3); PHOSPHORUS 3.8 mg/dL (2.5-5.0); POTASSIUM 3.4 mmol/L (3.5-4.5)
[2023-08-11 06:13] LABS: PLATELET ESTIMATE, MANUAL NORMAL (130-450,000) (NORMAL); PLATELET MORPHOLOGY NORMAL APPEARANCE (NORMAL)
[2023-08-11 06:14] LABS: DIFFERENTIAL COMMENT MANUAL=AUTO DIFF
[2023-08-11] MEDS: BUDESONIDE 0.5 MG/2 ML NEB INH SCH ×3 (06:56→21:50)
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
[2023-08-11] MEDS: MAGNESIUM OXIDE 400 MG TABLET PO SCH (08:56)
[2023-08-11] MEDS: SODIUM CHLORIDE FLUSH 0.9% 10 ML SYRINGE IVP PRN ×2 (08:57→19:07)
[2023-08-11] MEDS: SODIUM CHLORIDE 0.9% 1,000 ML IV SCH (08:57)
[2023-08-11] MEDS: FAMOTIDINE 20 MG/2 ML VIAL IVP SCH ×2 (08:57→21:28)
[2023-08-11] MEDS: BENZOCAINE/MENTHOL LOZENGE MM PRN (10:30)
[2023-08-11] MEDS: HEPARIN 5,000 UNIT/ML VIAL SUBQ SCH ×2 (10:33→21:31)
[2023-08-11] MEDS ORDERED: IBUPROFEN 400 MG TABLET PO PRN (11:14)
[2023-08-11] MEDS ORDERED: IBUPROFEN 800 MG TABLET PO PRN (11:15)
[2023-08-11] MEDS: cefTRIAXone 2 GM in SODIUM CHLORIDE 0.9% MINIBAG 100 ML IV SCH (11:38)
[2023-08-11] MEDS ORDERED: cefTRIAXone 1 GM in SODIUM CHLORIDE 0.9% MINIBAG 100 ML IV SCH (12:00)
[2023-08-11] MEDS: PROCHLORPERAZINE 10 MG/2 ML VIAL IVP PRN (15:59)
[2023-08-11] MEDS ORDERED: SODIUM CHLORIDE 0.9% 1,000 ML IV SCH ×2 (16:42→18:50)
[2023-08-11] MEDS: ACETAMINOPHEN 325 MG TABLET PO PRN (23:45)
[2023-08-12] MEDS: PROCHLORPERAZINE 10 MG/2 ML VIAL IVP PRN (02:18)
[2023-08-12] MEDS: SODIUM CHLORIDE FLUSH 0.9% 10 ML SYRINGE IVP SCH ×4 (02:19→20:44)
[2023-08-12] MEDS: BENZOCAINE/MENTHOL LOZENGE MM PRN ×2 (02:19→12:51)
[2023-08-12 06:00] LABS: BASOPHILS % (AUTO) 0.1 %; EOSINOPHILS % (AUTO) 0.3 %; HCT - HEMATOCRIT 33.9 % (37.0-47.0); HGB - HEMOGLOBIN 10.9 g/dL (12.0-16.0); LYMPHOCYTES # (AUTO) 0.7 10^3/uL (1.5-3.5); LYMPHOCYTES % (AUTO) 6.2 %; MEAN CORPUSCULAR HEMOGLOBIN 34.2 pg (27.0-31.0); MEAN CORPUSCULAR HGB CONC 32.2 g/dL (32.0-36.0); MEAN CORPUSCULAR VOLUME 106.3 fL (81.0-99.0); MEAN PLATELET VOLUME 11.1 fL (7.9-10.8); MONOCYTES # (AUTO) 0.7 10^3/uL (0.0-1.0); MONOCYTES % (AUTO) 5.8 %; NEUTROPHILS # (AUTO) 10.3 10^3/uL (1.5-6.6); NEUTROPHILS % (AUTO) 86.4 %; PLT - PLATELET COUNT 110 10^3/uL (130-450); RED BLOOD COUNT 3.19 10^6/uL (4.20-5.40); RED CELL DISTRIBUTION WIDTH 13.2 % (12.0-15.0); WHITE BLOOD COUNT 11.9 x10^3/uL (4.8-10.8)
[2023-08-12 06:19] LABS: VBG PH 7.257 (7.31-7.41)
[2023-08-12 06:20] LABS: CALCIUM, IONIZED 1.19 mmol/L (1.15-1.33); MAGNESIUM 1.8 mg/dL (1.7-2.3); POTASSIUM 3.4 mmol/L (3.5-4.5)
[2023-08-12] MEDS: BUDESONIDE 0.5 MG/2 ML NEB INH SCH ×2 (06:35→19:15)
[2023-08-12 07:06] LABS: PLATELET ESTIMATE, MANUAL NORMAL (130-450,000) (NORMAL); PLATELET MORPHOLOGY PLATELET CLUMPING (NORMAL)
[2023-08-12 07:07] LABS: DIFFERENTIAL COMMENT MANUAL=AUTO DIFF
[2023-08-12] MEDS: FAMOTIDINE 20 MG/2 ML VIAL IVP SCH ×2 (08:46→20:44)
[2023-08-12] MEDS: MAGNESIUM OXIDE 400 MG TABLET PO SCH (08:48)
[2023-08-12] MEDS: guaiFENesin 600 MG TABLET PO PRN (08:48)
[2023-08-12] MEDS: HEPARIN 5,000 UNIT/ML VIAL SUBQ SCH ×2 (09:00→20:44)
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
[2023-08-12] MEDS: cefTRIAXone 2 GM in SODIUM CHLORIDE 0.9% MINIBAG 100 ML IV SCH (12:11)
[2023-08-12] MEDS: SODIUM CHLORIDE FLUSH 0.9% 10 ML SYRINGE IVP PRN (13:06)
[2023-08-12 14:22] LABS: CALCIUM 9.1 mg/dL (8.5-10.3); CREATININE 4.2 mg/dL (0.6-1.3); POTASSIUM 3.4 mmol/L (3.5-4.5)
[2023-08-12] MEDS: LEVALBUTEROL 1.25 MG/3 ML NEB INH PRN (19:15)
[2023-08-12] MEDS: ACETAMINOPHEN 325 MG TABLET PO PRN (22:58)
[2023-08-13] MEDS ORDERED: HALOPERIDOL 5 MG/ML VIAL IM PRN (01:31)
[2023-08-13 05:48] LABS: BASOPHILS % (AUTO) 0.1 %; EOSINOPHILS % (AUTO) 1.2 %; HCT - HEMATOCRIT 32.3 % (37.0-47.0); HGB - HEMOGLOBIN 10.5 g/dL (12.0-16.0); MEAN CORPUSCULAR HEMOGLOBIN 33.9 pg (27.0-31.0); MEAN CORPUSCULAR HGB CONC 32.5 g/dL (32.0-36.0); MEAN CORPUSCULAR VOLUME 104.2 fL (81.0-99.0); MEAN PLATELET VOLUME 11.3 fL (7.9-10.8); MONOCYTES % (AUTO) 4.7 %; NEUTROPHILS % (AUTO) 82.3 %; PLT - PLATELET COUNT 107 10^3/uL (130-450); RED CELL DISTRIBUTION WIDTH 13.2 % (12.0-15.0); WHITE BLOOD COUNT 11.6 x10^3/uL (4.8-10.8)
[2023-08-13 05:53] LABS: CALCIUM, IONIZED 1.24 mmol/L (1.15-1.33)
[2023-08-13 05:55] LABS: VBG PH 7.188 (7.31-7.41)
[2023-08-13 06:06] LABS: CALCIUM 9.1 mg/dL (8.5-10.3); CREATININE 4.3 mg/dL (0.6-1.3); MAGNESIUM 2.1 mg/dL (1.7-2.3); PHOSPHORUS 4.6 mg/dL (2.5-5.0); POTASSIUM 3.3 mmol/L (3.5-4.5)
[2023-08-13 06:10] LABS: ABNORMAL LYMPHS % (MANUAL) 0 %
[2023-08-13] MEDS ORDERED: SODIUM BICARBONATE ABBOJECT 50 MEQ/50 ML SYRINGE IVP ONE ×2 (06:21→08:00)
--- NOTE | 2023-08-13 07:27 | Discharge Plan ---
Discharge Plan Problem Reviewed?: Yes Disposition: 02 Transfer Acute Care Hosp Condition: Serious No Smoking: If you smoke, Please STOP! Call for help.
[2023-08-13 07:35] LABS: BAND NEUTROPHILS % (MANUAL) 10 %; DIFFERENTIAL COMMENT MANUAL DIFFERENTIAL; LYMPHOCYTES # (MANUAL) 0.9 10^3/uL (1.5-3.5); LYMPHOCYTES % (MANUAL) 4 %; MONOCYTES # (MANUAL) 0.5 10^3/uL (0.0-1.0); NEUTROPHILS # (MANUAL) 10.2 10^3/uL (1.5-6.6); PLATELET ESTIMATE, MANUAL DECREASED (<130,000) (NORMAL); RBC MORPHOLOGY (MULTIPLE) 1+ ANISOCYTOSIS (NORMAL); REACTIVE LYMPHS % (MANUAL) 4 %
[2023-08-13] MEDS: BUDESONIDE 0.5 MG/2 ML NEB INH SCH (07:37)
[2023-08-13] MEDS: LEVALBUTEROL 1.25 MG/3 ML NEB INH PRN (07:37)
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
[2023-08-13] MEDS: FAMOTIDINE 20 MG/2 ML VIAL IVP SCH (07:53)
[2023-08-13] MEDS: SODIUM CHLORIDE FLUSH 0.9% 10 ML SYRINGE IVP SCH (07:54)
[2023-08-13 08:17] VITALS: BP 131/69; O2SAT 97
[2023-08-13 08:37] LABS: VBG PCO2 44.7 mmHg (41-51); VBG PH 7.244 (7.31-7.41); VBG PO2 31.1 mmHg (25-47)
[2023-08-13 08:38] LABS: VBG BASE EXCESS -8.1 mmol/L (-2 - +2); VBG HCO3 18.9 mmol/L (23-28); VBG OXYGEN SATURATION 59.1 % (60-80); VBG TOTAL CO2 20.3 mmol/L (24-29)
[2023-08-13] MEDS ORDERED: FAMOTIDINE 20 MG/2 ML VIAL IVP SCH (21:00)
== END 2023-08-13 08:45 | disposition short-term general hospital (02) | DRG 871 ==
LOC: EDUNIT# → ED 08:34 → ICU 12:09
PROVIDERS: ADMIT Internal Medicine; ATTEND Internal Medicine
DX: N17.9 Acute kidney failure, unspecified (principal); T68.XXXA Hypothermia, initial encounter; R11.2 Nausea with vomiting, unspecified; A41.51 Sepsis due to Escherichia coli [E. coli]; R10.10 Upper abdominal pain, unspecified; G93.41 Metabolic encephalopathy; R65.21 Severe sepsis with septic shock; N17.0 Acute kidney failure with tubular necrosis; N12 Tubulo-interstitial nephritis, not specified as acute or chronic; F17.200 Nicotine dependence, unspecified, uncomplicated; I45.10 Unspecified right bundle-branch block; R41.82 Altered mental status, unspecified; R51.9 Headache, unspecified; E87.20 Acidosis, unspecified; E87.1 Hypo-osmolality and hyponatremia; I48.91 Unspecified atrial fibrillation; R09.02 Hypoxemia; M19.90 Unspecified osteoarthritis, unspecified site; J44.9 Chronic obstructive pulmonary disease, unspecified; E87.6 Hypokalemia; E83.42 Hypomagnesemia; E86.0 Dehydration; I10 Essential (primary) hypertension; I25.10 Atherosclerotic heart disease of native coronary artery without angina pectoris; R53.1 Weakness; E66.9 Obesity, unspecified; Z68.39 Body mass index [BMI] 39.0-39.9, adult; I95.9 Hypotension, unspecified; J43.9 Emphysema, unspecified; J98.4 Other disorders of lung
CPT/HCPCS: 36415; 51702; 70450; 71045; 74176; 80048; 80053; 81001; 82330; 82550; 82803; 83605; 83690; 83735; 84100; 84443; 84484; 85025; 87040; 87086; 87150; 87181; 87633; 93005; 94640; 96361; 96365; 96375; 96376; 99285; 99291; A9270; G0480; J1200; J7626; 80320; 81003

== ENCOUNTER 2023-08-27 09:37 | Outpatient (CLI) | payer MEDICARE, MEDICAID ==
[2023-08-27 13:05] LABS: CALCIUM 9.7 mg/dL (8.5-10.3); CREATININE 1.1 mg/dL (0.6-1.3); POTASSIUM 3.8 mmol/L (3.5-4.5)
== END 2023-08-27 09:38 | disposition home or self-care (01) ==
LOC: LAB.N 09:37
PROVIDERS: ATTEND Physician Assistant
DX: N17.9 Acute kidney failure, unspecified (principal); N10 Acute pyelonephritis
CPT/HCPCS: 36415; 80048

== ENCOUNTER 2023-12-11 10:01 | Outpatient (CLI) | payer MEDICARE, MEDICAID ==
[2023-12-11 11:59] LABS: BASOPHILS % (AUTO) 0.7 %; EOSINOPHILS # (AUTO) 0.2 10^3/uL (0.0-0.7); EOSINOPHILS % (AUTO) 3.6 %; LYMPHOCYTES # (AUTO) 1.9 10^3/uL (1.5-3.5); MEAN CORPUSCULAR HEMOGLOBIN 30.7 pg (27.0-31.0); MEAN CORPUSCULAR VOLUME 99.3 fL (81.0-99.0); MEAN PLATELET VOLUME 9.6 fL (7.9-10.8); MONOCYTES # (AUTO) 0.3 10^3/uL (0.0-1.0); MONOCYTES % (AUTO) 5.7 %; NEUTROPHILS # (AUTO) 3.1 10^3/uL (1.5-6.6); NEUTROPHILS % (AUTO) 55.5 %; PLT - PLATELET COUNT 382 10^3/uL (130-450); RED BLOOD COUNT 4.23 10^6/uL (4.20-5.40); WHITE BLOOD COUNT 5.6 x10^3/uL (4.8-10.8)
[2023-12-11 12:02] LABS: ESTIMATED AVERAGE GLUCOSE 103 mg/dL (70-100); HEMOGLOBIN A1c% 5.2 % (4.27-6.07)
[2023-12-11 12:32] LABS: THYROID STIMULATING HORMONE 1.93 uIU/mL (0.34-5.60)
[2023-12-11 12:38] LABS: ALBUMIN 4.2 g/dL (3.2-5.5); ALBUMIN/GLOBULIN RATIO 1.3 (1.0-2.2); ALKALINE PHOSPHATASE 114 IU/L (42-121); ALT ALANINE AMINOTRANSFERASE 17 IU/L (10-60); AST ASPARTATE AMINOTRANSFERASE 20 IU/L (10-42); BILIRUBIN,TOTAL 0.4 mg/dL (0.2-1.0); BUN - BLOOD UREA NITROGEN 13 mg/dL (6-20); CALCIUM 10.6 mg/dL (8.5-10.3); CARBON DIOXIDE - CO2 26 mmol/L (21-32); CHLORIDE 104 mmol/L (101-111); CHOL/HDL RATIO 2.3 (<4.4); CHOLESTEROL 214 mg/dL; GFR - MDRD 55 (>89); GLUCOSE 106 mg/dL (74-104); HDL CHOLESTEROL 93 mg/dL; LDL CHOLESTEROL,CALCULATED 101 mg/dL; LDL/HDL RATIO 1.1 (<4.4); SODIUM 137 mmol/L (135-145); TOTAL PROTEIN 7.5 g/dL (6.4-8.9); TRIGLYCERIDES 99 mg/dL (48-352); VLDL CHOLESTEROL 20 mg/dL
[2023-12-11 12:40] LABS: CREATININE,URINE 65.4 mg/dL
[2023-12-11 12:43] LABS: MICROALBUMIN,URINE < 0.7 mg/dL
== END 2023-12-11 10:02 | disposition home or self-care (01) ==
LOC: LAB.N 10:01
PROVIDERS: ATTEND Internal Medicine
DX: I11.0 Hypertensive heart disease with heart failure (principal); I50.9 Heart failure, unspecified; R41.3 Other amnesia; R73.01 Impaired fasting glucose; E78.5 Hyperlipidemia, unspecified
CPT/HCPCS: 36415; 80053; 80061; 82043; 82570; 82607; 83036; 83721; 83880; 84443; 85025